=== PATIENT | female | born 1960 | race Caucasian/White ===

== ENCOUNTER 2019-05-24 13:05 | Inpatient (IN) | payer OTHER, SELFPAY ==
[2019-05-24] VITALS (9 sets, daily range): BP systolic 93–111; BP diastolic 61–79; PULSE 88–100; RESP 14–23; TEMP 36.6–36.9; O2SAT 81–97; BMI 21.9
--- NOTE | 2019-05-24 13:25 | ED_ITS ---
HPI - SOB/Dyspnea General Chief Complaint: Shortness of Breath/Dyspnea Stated Complaint: shortness of breath Time Seen by Provider: 05/24/19 13:20 Source: patient and family () Mode of arrival: wheelchair Limitations: no limitations History of Present Illness This is a 58-year-old female who comes in with complaint of increasing shortness of breath. Patient has known breast cancer with metastases to the liver and spine. Patient was diagnosed with breast cancer, she had mastectomy, was on tamoxifen for 5 years and then 3 years later found metastatic cancer. Patient states that she was diagnosed by CT scan about 10 days ago with multiple pulmonary emboli. She was started on subcutaneous blood thinners. She states she has been taking them regularly although sometimes it is a couple hours off of schedule. Patient has not had any fevers or chills. She has had increasing shortness of breath. She states that she has had increasing difficulty breathing with exertion and she is finding it harder and harder for her to walk any distance. Today even talking, lifting her arm or brushing her teeth when see her. Patient has not been coughing anything up. She is not complaining of any chest pain. She does have back pain. She recently had palliative radiation for 5 days for lesions in her spine which she states was not very helpful. She has not had any changes to bowel movements or urination. She has noticed swel ling in her left lower extremity. She is from the [place] area and they did drive here to spend the rest of the month. Patient states that she does not have any other medical problems such as hypertension, diabetes dyslipidemia thyroid. She did have a period where she had a lot of ascites and had peritoneal drains but the fluid has been drained off and she no longer has those in place. She states that she has had a mastectomy, she has had uterine ablation, bilateral oophorectomy as well as tubal. She denies any allergies to medications. She denies any tobacco, alcohol or illicit. She is and accompanied by her Related Data Home Medications Medication Instructions Recorded Confirmed cyclobenzaprine 5 mg PO TID PRN 05/24/19 05/24/19 enoxaparin 1 dose SUBCUT DAILY 05/24/19 05/24/19 furosemide 60 mg PO DAILY 05/24/19 05/24/19 hydromorphone [Dilaudid] 6 mg PO Q3H PRN 05/24/19 05/24/19 lidocaine 1 patch TOPICAL DAILY PRN 05/24/19 05/24/19 methadone 15 mg PO BID 05/24/19 05/24/19 morphine 120 mg PO Q12H 05/24/19 05/24/19 naloxone [Narcan] 1 dose INTRANASAL PRN PRN 05/24/19 05/24/19 ondansetron 4 mg PO PRN PRN 05/24/19 05/24/19 potassium chloride [Klor-Con M20] 20 meq PO DAILY 05/24/19 05/24/19 salsalate 1,000 mg PO BID 05/24/19 05/24/19 sennosides [senna] 1 dose PO PRN PRN 05/24/19 05/24/19 spironolactone 25 mg PO DAILY 05/24/19 05/24/19 Allergies Allergy/AdvReac Type Severity Reaction Status Date / Time Penicillins Allergy Mild Rash Verified 05/24/19 14:11 Review of Systems Review of Systems ROS Unobtainable: All systems reviewed & are unremarkable except as noted in HPI and below Constitutional Denies chills, Reports fatigue, Denies fever(s), Denies lethargy and Denies weakness Cardiovascular Denies chest pain, Denies diaphoresis, Denies syncope, Denies irregular heart rhythm, Reports leg edema (Left leg), Denies lightheadedness, Denies palpitations, Reports dyspnea, Reports dyspnea on exertion and Denies orthopnea Respiratory Denies change in phlegm color, Denies chest congestion, Denies cough, Denies hemoptysis, Reports dyspnea, Reports dyspnea on exertion and Denies wheezing Gastrointestinal Gastrointestinal: Denies abdominal pain, Denies melena, Denies hematochezia, Denies change in bowel habits, Denies diarrhea, Denies nausea and Denies vomiting Genitourinary Denies hematuria, Denies dysuria, Denies flank pain and Denies urinary urgency Musculoskeletal Reports back pain Integumentary/Breasts Denies rash Neurologic Denies syncope and Denies weakness Endocrine Reports fatigue and Denies palpitations Allergic/Immunologic Denies wheezing [facility] Medical History (Updated 05/24/19 @ 18:13 by Antonio Horton MD) Metastatic breast cancer (Acute) Portal vein thrombosis (Acute) Metastasis to spinal column (Chronic) Pulmonary embolism (Ruled-out) Surgical History H/O mastectomy (Chronic) H/O oophorectomy (Chronic) H/O tubal ligation (Chronic) Family History (Updated 05/24/19 @ 18:02 by Antonio Horton MD) Mother Ovary cancer Father Suicide Social History (Updated 05/24/19 @ 14:09 by Barbara Arellano DO) marital status: household members: significant other and children other: Lives in [facility] Smoking Status: Never smoker alcohol intake: former substance use type: does not use Social History (Updated 05/24/19 @ 14:09 by Barbara Arellano DO) marital status: household members: significant other and children other: Lives in [facility] Smoking Status: Never smoker alcohol intake: former substance use type: does not use Exam Narrative Exam Narrative: GEN: Thin kyphotic female, alert and oriented x 3, patient appe ars to be in mild distress. HEENT: Atraumatic, pupils are equal round reactive to light, extraocular movements are intact, nares are clear. HEART: Regular rate and rhythm without murmur, clicks, rubs. Pulses are equal in upper and lower extremities LUNGS:Lungs decreased bilaterally, no wheezes, rales, crackles, chest moves symmetrically, no tachypnea, no accessory muscle use. ABD:bowel sounds normal, soft, non-tender, no guarding, rebound, rigidity, no masses noted, no hepatosplenomegaly :No CVA tenderness MSCL: Non-tender, full range of motion of upper extremities, gait not tested. NEURO:CN 2-12 intact, sensation normal. Initial Vital Signs Initial Vital Signs: Vital Signs Temperature 98.4 F 05/24/19 13:05 Pulse Rate 93 H 05/24/19 13:05 Respiratory Rate 18 05/24/19 13:05 Blood Pressure 105/68 05/24/19 13:05 Pulse Oximetry 81 L 05/24/19 13:05 Course Orders Ordered: ED Orders 05/24/19 13:26 B Type Natriuretic Peptide Stat Complete Blood Count AUTO DIFF Stat Partial Thromboplastin Time Stat Prothrombin Time INR Stat 05/24/19 13:53 Consult to Respiratory Therapy Evaluate & Treat EKG-12 Lead Stat 05/24/19 13:54 CT angio chest PE protocol Stat XR chest 1V Stat 05/24/19 14:14 Blood Culture Stat Comprehensive Metabolic Panel Stat Lactate (Lactic Acid) Stat Magnesium Stat Procalcitonin Stat Troponin & CK Cardiac Panel Stat 05/24/19 15:00 Urinalysis and Microscopic Stat Urine Culture Stat 05/24/19 17:10 Consult to Dietitian, Adult Routine 05/24/19 17:52 Education, smoking cessation ONGOING 05/24/19 17:55 Consult to Physical Therapy Evaluate & Treat 05/24/19 18:21 Potassium Stat Cyclobenzaprine HCl (Flexeril) 5 mg PO TID PRN PRN Reason: Muscle Spasm Dexamethasone (Decadron) 4 mg IV Q12HR RICHARD Enoxaparin Sodium (Lovenox) 80 mg SUBCUT DAILY RICHARD Furosemide (Lasix) 60 mg PO DAILY RICHARD Hydromorphone HCl (Dilaudid) 6 mg PO Q3H PRN PRN Reason: pain Sodium Chloride (Normal Saline 0.9%) 1,000 mls @ 150 mls/hr IV CONT [facility] Last Infusion: 05/24/19 16:46 Dose: 0 mls/hr Admin: 05/24/19 14:15 Dose: 150 mls/hr Lidocaine (Lidoderm) 1 each TOP DAILY PRN PRN Reason: pain Lidocaine (Lidoderm (Remove Patch)) 1 each TOP BEDTIME [facility] Methadone HCl (Methadone) 15 mg PO BID [facility] Morphine Sulfate (Ms Contin) 120 mg PO Q12H [facility] Last Admin: 05/24/19 18:51 Dose: 120 mg Ondansetron HCl (Zofran Odt) 4 mg PO Q4H PRN PRN Reason: Nausea Potassium Chloride (Klor-Con M20) 20 meq PO DAILY [facility] Salsalate (Salsalate) 1,000 mg PO BID [facility] Sennosides (Senna) 8.6 mg PO BEDTIME [facility] Spironolactone (Aldactone) 25 mg PO DAILY [facility] Discontinued Medications Potassium Chloride (Potassium Chloride) 40 meq PO NOW ONE Stop: 05/24/19 14:56 Last Admin: 05/24/19 15:13 Dose: 40 meq Vital Signs - 8 hr 05/24/19 13:05 05/24/19 13:39 05/24/19 14:00 Temperature 98.4 F Pulse Rate 95 H 91 H 93 H Respiratory Rate 22 22 21 Blood Pressure 105/68 Blood Pressure [Left Arm] Blood Pressure [Right Arm] 105/68 103/63 95/62 Pulse Oximetry 95 96 97 05/24/19 14:30 05/24/19 15:15 05/24/19 16:01 Temperature Pulse Rate 90 100 H 97 H Respiratory Rate 21 23 Blood Pressure Blood Pressure [Left Arm] 107/64 Blood Pressure [Right Arm] 95/63 93/61 Pulse Oximetry 96 95 92 05/24/19 16:57 Temperature 98.1 F Pulse Rate 91 H Respiratory Rate 14 Blood Pressure 96/67 Blood Pressure [Left Arm] Blood Pressure [Right Arm] Pulse Oximetry 96 MDM - SOB/Dyspnea Lab Data Attestation: I reviewed the patient's lab results. Result diagrams: 05/24/19 13:26 05/24/19 18:21 Lab Results 05/24/19 05/24/19 05/24/19 Range/Units 13:26 13:26 14:14 WBC 2.3 L (4.5-11.0) X10^3/uL RBC 3.54 L (4.0-5.2) X10^6/uL Hgb 12.5 (12.0-16.0) g/dL Hct 36.6 (36-46) % MCV 103.3 H (80-100) fL MCH 35.2 H (26-34) PG MCHC 34.1 (30-36) % RDW 20.6 H (11.6-14.8) % Plt Count 54 L (150-400) X10^3/uL Neut % (Auto) 80.9 H (50-75) % Lymph % (Auto) 6.0 L (25-40) % [place] % (Auto) 9.8 (3-14) % Eos % (Auto) 2.2 (2-4) % Baso % (Auto) 1.1 (0-2) % Neut # (Auto) 1900 (4641-3106) /uL Lymph # (Auto) 100 L (4574-5834) /uL [place] # (Auto) 200 (0-900) /uL Eos # (Auto) 100 (0-450) /uL Baso # (Auto) 0 (0-100) /uL Platelet Estimate Decr RBC Morphology See below Polychromasia 1+ H Poikilocytosis 1+ H Anisocytosis 1+ H Macrocytosis 1+ H PT 17.8 H (10.1-12.7) SECONDS INR 1.5 H (0.9-1.3) APTT 33 (26.4-36.2) SECONDS Sodium (137-145) mmol/L Potassium (3.4-5.1) mmol/L Chloride (98-107) mmol/L Carbon Dioxide (22-32) mmol/L BUN (7-17) mg/dL Creatinine (0.52-1.04) mg/dL Estimated GFR (>60) mL/min BUN/Creatinine Ratio (6-22) Glucose (80-110) mg/dL Lactate (0.7-2.1) mmol/L Calcium (8.4-10.2) mg/dL Magnesium 1.6 (1.6-2.3) mg/dL Total Bilirubin (0.2-1.3) mg/dL AST (14-36) IU/L ALT (9-52) IU/L Alkaline Phosphatase (38-126) U/L Total Creatine Kinase 59 (30-135) U/L CK-MB (CK-2) TNP CK-MB (CK-2) Rel Index TNP Troponin I < 0.012 (0.01-0.034) ng/mL B-Natriuretic Peptide 277 H (<100) Total Protein (6.3-8.2) g/dL Albumin (3.5-5.0) g/dL Globulin (1.7-4.1) g/dL Albumin/Globulin Ratio (1.0-2.8) Procalcitonin (<0.5) ng/mL Urine Color Urine Appearance Urine pH (4.5-8.0) Ur Specific [place] (1.000-1.035) Urine Protein (Negative) Urine Glucose (UA) (Negative) g/dL Urine Ketones (NEGATIVE) Urine Occult Blood (Negative) Urine Nitrate (Negative) Urine Bilirubin (NEGATIVE) Urine Urobilinogen (0.2) E.U./dL Ur Leukocyte Esterase (NEGATIVE) Urine RBC (0-5/HPF) Urine WBC (0-5/HPF) Ur Squamous Epith Cells (0-5/HPF) Urine Bacteria (None) Hyaline Casts (None) Urine Mucus (Negative) Ur Culture Indicated? 05/24/19 05/24/19 05/24/19 Range/Units 14:14 14:14 14:14 WBC (4.5-11.0) X10^3/uL RBC (4.0-5.2) X10^6/uL Hgb (12.0-16.0) g/dL Hct (36-46) % MCV (80-100) fL MCH (26-34) PG MCHC (30-36) % RDW (11.6-14.8) % Plt Count (150-400) X10^3/uL Neut % (Auto) (50-75) % Lymph % (Auto) (25-40) % [place] % (Auto) (3-14) % Eos % (Auto) (2-4) % Baso % (Auto) (0-2) % Neut # (Auto) (5082-6613) /uL Lymph # (Auto) (5994-0914) /uL [place] # (Auto) (0-900) /uL Eos # (Auto) (0-450) /uL Baso # (Auto) (0-100) /uL Platelet Estimate RBC Morphology Polychromasia Poikilocytosis Anisocytosis Macrocytosis PT (10.1-12.7) SECONDS INR (0.9-1.3) APTT (26.4-36.2) SECONDS Sodium 136 L (137-145) mmol/L Potassium 2.7 L* (3.4-5.1) mmol/L Chloride 93 L (98-107) mmol/L Carbon Dioxide 36 H (22-32) mmol/L BUN 13 (7-17) mg/dL Creatinine 0.60 (0.52-1.04) mg/dL Estimated GFR > 60.0 (>60) mL/min BUN/Creatinine Ratio 21.7 (6-22) Glucose 100 (80-110) mg/dL Lactate 1.5 (0.7-2.1) mmol/L Calcium 8.5 (8.4-10.2) mg/dL Magnesium (1.6-2.3) mg/dL Total Bilirubin 1.0 (0.2-1.3) mg/dL AST 77 H (14-36) IU/L ALT 26 (9-52) IU/L Alkaline Phosphatase 142 H (38-126) U/L Total Creatine Kinase (30-135) U/L CK-MB (CK-2) CK-MB (CK-2) Rel Index Troponin I (0.01-0.034) ng/mL B-Natriuretic Peptide (<100) Total Protein 6.5 (6.3-8.2) g/dL Albumin 3.2 L (3.5-5.0) g/dL Globulin 3.3 (1.7-4.1) g/dL Albumin/Globulin Ratio 1.0 (1.0-2.8) Procalcitonin < 0.05 (<0.5) ng/mL Urine Color Urine Appearance Urine pH (4.5-8.0) Ur Specific [place] (1.000-1.035) Urine Protein (Negative) Urine Glucose (UA) (Negative) g/dL Urine Ketones (NEGATIVE) Urine Occult Blood (Negative) Urine Nitrate (Negative) Urine Bilirubin (NEGATIVE) Urine Urobilinogen (0.2) E.U./dL Ur Leukocyte Esterase (NEGATIVE) Urine RBC (0-5/HPF) Urine WBC (0-5/HPF) Ur Squamous Epith Cells (0-5/HPF) Urine Bacteria (None) Hyaline Casts (None) Urine Mucus (Negative) Ur Culture Indicated? 05/24/19 05/24/19 Range/Units 15:00 18:21 WBC (4.5-11.0) X10^3/uL RBC (4.0-5.2) X10^6/uL Hgb (12.0-16.0) g/dL Hct (36-46) % MCV (80-100) fL MCH (26-34) PG MCHC (30-36) % RDW (11.6-14.8) % Plt Count (150-400) X10^3/uL Neut % (Auto) (50-75) % Lymph % (Auto) (25-40) % [place] % (Auto) (3-14) % Eos % (Auto) (2-4) % Baso % (Auto) (0-2) % Neut # (Auto) (1960-3357) /uL Lymph # (Auto) (4727-9269) /uL [place] # (Auto) (0-900) /uL Eos # (Auto) (0-450) /uL Baso # (Auto) (0-100) /uL Platelet Estimate RBC Morphology Polychromasia Poikilocytosis Anisocytosis Macrocytosis PT (10.1-12.7) SECONDS INR (0.9-1.3) APTT (26.4-36.2) SECONDS Sodium (137-145) mmol/L Potassium 3.6 (3.4-5.1) mmol/L Chloride (98-107) mmol/L Carbon Dioxide (22-32) mmol/L BUN (7-17) mg/dL Creatinine (0.52-1.04) mg/dL Estimated GFR (>60) mL/min BUN/Creatinine Ratio (6-22) Glucose (80-110) mg/dL Lactate (0.7-2.1) mmol/L Calcium (8.4-10.2) mg/dL Magnesium (1.6-2.3) mg/dL Total Bilirubin (0.2-1.3) mg/dL AST (14-36) IU/L ALT (9-52) IU/L Alkaline Phosphatase (38-126) U/L Total Creatine Kinase (30-135) U/L CK-MB (CK-2) CK-MB (CK-2) Rel Index Troponin I (0.01-0.034) ng/mL B-Natriuretic Peptide (<100) Total Protein (6.3-8.2) g/dL Albumin (3.5-5.0) g/dL Globulin (1.7-4.1) g/dL Albumin/Globulin Ratio (1.0-2.8) Procalcitonin (<0.5) ng/mL Urine Color Yellow Urine Appearance Clear Urine pH 5.0 (4.5-8.0) Ur Specific [place] 1.025 (1.000-1.035) Urine Protein Negative (Negative) Urine Glucose (UA) Negative (Negative) g/dL Urine Ketones Trace H (NEGATIVE) Urine Occult Blood Negative (Negative) Urine Nitrate Negative (Negative) Urine Bilirubin Negative (NEGATIVE) Urine Urobilinogen 0.2 (0.2) E.U./dL Ur Leukocyte Esterase 1+ H (NEGATIVE) Urine RBC None seen (0-5/HPF) Urine WBC 10-30/hpf H (0-5/HPF) Ur Squamous Epith Cells 1-5 /hpf (0-5/HPF) Urine Bacteria Moderate (10-30) H (None) Hyaline Casts 10-30/lpf (None) Urine Mucus 2+ H (Negative) Ur Culture Indicated? Specimen cultured Imaging Data Chest x-ray: Radiologist's impression: [place] [address] XRay Report Signed Patient: Mary Dietrich EMR#: [id number] : 8Acct:[id number] Age/Sex: 58 / FDate of Service: 05/24/19 Loc: ED Accession Number: [id number] Procedure: XR chest 1V Ordering Provider: Barbara Arellano D.O. PROCEDURE: XR CHEST 1V INDICATIONS: sob, cancer. known pe TECHNIQUE: One view of the chest was acquired. COMPARISON: None. FINDINGS: Decreased visualization of the right lung apex due to the patient's kyphosis and position. Surgical changes and devices: None. Lungs and pleura: right lung base opacity and probable small right pleural effusion.. Mediastinum: Tortuous thoracic aorta. Heart size is grossly within normal limits. Bones and chest wall: Numerous deformity is prior right rib fractures, left rib fractures, and heterogeneity in the demineralization suggesting metastases. Overlying soft tissues appear unremarkable. IMPRESSION: Probable small right pleural effusion with right base atelectasis or pneumonia. Evaluation of the right thorax is limited due to the patient's pos itioning. Multiple bone lesions and healing bilateral rib fractures. Dictated by: Kerry Hale M.D. on 05/24/2019 at 13:23 Approved by: Kerry Hale M.D. on 05/24/2019 at 13:26 CTA PE protocal: Radiologist's impression: [address] [address] [address] Scan Report Signed Patient: Mary Dietrich EMR#: [id number] : 8Acct:[id number] Age/Sex: 58 / FDate of Service: 05/24/19 Loc: ED Accession Number: [id number] Procedure: CT angio chest PE protocol Ordering Provider: Barbara Arellano D.O. PROCEDURE: CT ANGIO CHEST PE PROTOCOL INDICATIONS: known pe, worsening sob, has breast ca w/ mets TECHNIQUE: After the administration of intravenous contrast, 2 mm thick sections acquired from the pulmonary apices to the posterior costophrenic angles. 3-dimensional maximum intensity projection (MIP) coronal and sagittal reformats were then acquired through the thorax. For radiation dose reduction, the following was used: automated exposure cont rol, adjustment of mA and/or kV according to patient size. COMPARISON: None. FINDINGS: Image quality: Excellent. Pulmonary arteries: Pulmonary arteries are normal in size, and demonstrate no intraluminal filling defects to suggest central pulmonary embolism. Lungs and pleura: Moderate to large right pleural effusion is seen with near complete atelectasis of right middle and lower lobes and segmental atelectasis in posterior aspect of right upper lobe. Small infiltrate/atelectasis in posterior and medial aspect of left lower lobe is seen. There is mild centrilobular emphysema. No pneumothorax. Central and peripheral airways are patent. Mediastinum: Heart size is enlarged, without pericardial effusion. No mediastinal or hilar adenopathy by size criteria. Thoracic aorta is normal in caliber and enhancement. Esophagus is normal in caliber, with a small hiatal hernia. Bones and chest wall: Severe kyphosis of thoracic spine centered at T5-6 level is seen. Heterogeneously sclerotic appearance of visualized thoracic spine, sternum, and bilateral ribs are seen, consistent with patient's known metastatic breast cancer. There is cortical irregularity involving the mid sternum concerning for pathologic midsternal fracture. Thyroid gland is within normal limits. No axillary or supraclavicular adenopathy. Abdomen: Ascites fluid in the visualized right upper quadrant abdomen is seen. Lobulated liver contour is noted concerning for cirrhosis. There is splenomegaly. IMPRESSION: 1. No evidence of pulmonary emboli is seen on the current study. 2. Moderate to large right pleural effusion with atelectasis of right middle and lower lobes and segmental atelectasis in right upper lobe. Small infiltrate/atelectasis in left lower lobe. No pneumothorax. 3. No gross mediastinal or hilar lymphadenopathy. Marked cardiomegaly, no pericardial effusion. 4. Severe kyphosis of thoracic spine. Extensive sclerotic lesions scattered throughout visualized bony thorax, concerning for metastatic disease given patient's history of rest cancer. Cortical disruption involving mid to distal sternum concerning for pathologic sternal fracture. 5. Small amount of ascites fluid in right upper quadrant abdomen. Lobulated liver contour concerning for cirrhosis. Mild splenomegaly. Dictated by: Refugio Elizabeth M.D. on 05/24/2019 at 15:13 Approved by: Refugio Elizabeth M.D. on 05/24/2019 at 15:23 ECG Data Attestation: I personally reviewed and interpreted this ECG as follows: Prior ECG tracings: not available for review Interpretation: Sinus rhythm with ventricular PVCs. No ST elevation or depression appreciated. Patient does not have any prior EKGs available. MDM Narrative Medical decision making narrative: Patient's labs show a leukopenia with a white count of 2.3 hemoglobin is 12.5 platelets are 54, 1.5 with a PT of 17.8 and a PTT of 33. Patient's electrolytes are abnormal with a sodium 136, hypokalemic at 2.7 chloride of 93 and a bicarb of 36. BUN and creatinine are normal, lactate is normal 1.5, AST also slightly elevated at 77 with alk phos of 142, troponin is normal. BNP slightly elevated 277. And procalcitonin is negative. Chest x-ray shows possible right pleural effusion, it is difficult to evaluate based on patient's kyphosis. CT of the chest for PE protocol shows no evidence of pulmonary emboli, moderate to large right pleural effusion with atelectasis of right middle and lower lobes and segmental atelectasis in right upper lobe. Small infiltrate atelectasis some left lower lobe. No pneumo. No gross mediastinal or hilar lymphadenopathy. Marked cardiomegaly but no pericardial effusion. Patient has severe kyphosis of her thoracic spine with extensive sclerotic lesions concerning for metastatic disease is. She has cortical disruption in the mid to distal sternum concerning for pathologic sternal fracture. And small amount of ascites fluid in the right upper quadrant abdomen. Lobulated liver contour concerning for cirrhosis and mild splenomegaly. Attempting to obtain records but this is been difficult. We have contacted patient's primary care office, the building where they been seen and are trying [employer] insurance to get a CT report. Patient is comfortable on 2 L nasal cannula in the high 90s on her O2. Discussed findings with patient, with her large pleural effusion and high likelihood for recurrence discussed if she would like to try drainage as it will likely react cumulative quickly. Her platelets are 54 with an INR of 1.5, patient is the edge of cut off for thoracentesis per Radiology. The cough is 50 with an INR of 1.5. Discussed with patient that she has risk for complications such as bleeding and hemo thorax. She defers doing thoracentesis this time. She would like to try to maintain her oxygen with O2 and then return home for any further intervention. Patient we have attempted to get home O2 and have not been successful. Spoke with Dr. oHrton from the hospitalist service and he accepts. Discharge Plan Departure Patient Disposition: Admitted as Observation Clinical Impression: Hypoxemia, Hypokalemia, Large pleural effusion Discharge Date/Time: 05/24/19 16:48 Interventions: ED Discharge Assessment Last Done: 05/24/19 16:47 Admit Date/Time: 05/24/19 15:57 Admit Provider: Antonio Horton
--- NOTE | 2019-05-24 13:46 | PC.NURSE ---
pt reports decrease ability to ambulate more than 5-7 minutes without stopping, sees spots, is having trouble sleeping secondary to pain, has increased burping/feelings of satiety
--- NOTE | 2019-05-24 13:54 | DI.CT.S_ITS ---
PROCEDURE: CT ANGIO CHEST PE PROTOCOL INDICATIONS: known pe, worsening sob, has breast ca w/ mets TECHNIQUE: After the administration of intravenous contrast, 2 mm thick sections acquired from the pulmonary apices to the posterior costophrenic angles. 3-dimensional maximum intensity projection (MIP) coronal and sagittal reformats were then acquired through the thorax. For radiation dose reduction, the following was used: automated exposure control, adjustment of mA and/or kV according to patient size. COMPARISON: None. FINDINGS: Image quality: Excellent. Pulmonary arteries: Pulmonary arteries are normal in size, and demonstrate no intraluminal filling defects to suggest central pulmonary embolism. Lungs and pleura: Moderate to large right pleural effusion is seen with near complete atelectasis of right middle and lower lobes and segmental atelectasis in posterior aspect of right upper lobe. Small infiltrate/atelectasis in posterior and medial aspect of left lower lobe is seen. There is mild centrilobular emphysema. No pneumothorax. Central and peripheral airways are patent. Mediastinum: Heart size is enlarged, without pericardial effusion. No mediastinal or hilar adenopathy by size criteria. Thoracic aorta is normal in caliber and enhancement. Esophagus is normal in caliber, with a small hiatal hernia. Bones and chest wall: Severe kyphosis of thoracic spine centered at T5-6 level is seen. Heterogeneously sclerotic appearance of visualized thoracic spine, sternum, and bilateral ribs are seen, consistent with patient's known metastatic breast cancer. There is cortical irregularity involving the mid sternum concerning for pathologic midsternal fracture. Thyroid gland is within normal limits. No axillary or supraclavicular adenopathy. Abdomen: Ascites fluid in the visualized right upper quadrant abdomen is seen. Lobulated liver contour is noted concerning for cirrhosis. There is splenomegaly. IMPRESSION: 1. No evidence of pulmonary emboli is seen on the current study. 2. Moderate to large right pleural effusion with atelectasis of right middle and lower lobes and segmental atelectasis in right upper lobe. Small infiltrate/atelectasis in left lower lobe. No pneumothorax. 3. No gross mediastinal or hilar lymphadenopathy. Marked cardiomegaly, no pericardial effusion. 4. Severe kyphosis of thoracic spine. Extensive sclerotic lesions scattered throughout visualized bony thorax, concerning for metastatic disease given patient's history of rest cancer. Cortical disruption involving mid to distal sternum concerning for pathologic sternal fracture. 5. Small amount of ascites fluid in right upper quadrant abdomen. Lobulated liver contour concerning for cirrhosis. Mild splenomegaly. Dictated by: Refugio Elizabeth M.D. on 05/24/2019 at 15:13 Approved by: Refugio Elizabeth M.D. on 05/24/2019 at 15:23
--- NOTE | 2019-05-24 13:54 | DI.RAD.S_ITS ---
PROCEDURE: XR CHEST 1V INDICATIONS: sob, cancer. known pe TECHNIQUE: One view of the chest was acquired. COMPARISON: None. FINDINGS: Decreased visualization of the right lung apex due to the patient's kyphosis and position. Surgical changes and devices: None. Lungs and pleura: right lung base opacity and probable small right pleural effusion.. Mediastinum: Tortuous thoracic aorta. Heart size is grossly within normal limits. Bones and chest wall: Numerous deformity is prior right rib fractures, left rib fractures, and heterogeneity in the demineralization suggesting metastases. Overlying soft tissues appear unremarkable. IMPRESSION: Probable small right pleural effusion with right base atelectasis or pneumonia. Evaluation of the right thorax is limited due to the patient's positioning. Multiple bone lesions and healing bilateral rib fractures. Dictated by: Kerry Hale M.D. on 05/24/2019 at 13:23 Approved by: Kerry Hale M.D. on 05/24/2019 at 13:26
[2019-05-24 14:04] LABS: Add Manual Diff / Slide Review NO; Basophils Absolute Auto 0 /uL (0-100); Basophils Percent Auto 1.1 % (0-2); Eosinophils Absolute Auto 100 /uL (0-450); Eosinophils Percent Auto 2.2 % (2-4); Hematocrit 36.6 % (36-46); Hemoglobin 12.5 g/dL (12.0-16.0); Lymphocytes Absolute Auto 100 /uL (1100-4500); Mean Corpuscular HGB Conc 34.1 % (30-36); Mean Corpuscular Hemoglobin 35.2 PG (26-34); Mean Corpuscular Volume 103.3 fL (80-100); Monocytes Absolute Auto 200 /uL (0-900); Monocytes Percent Auto 9.8 % (3-14); Neutrophils Absolute Auto 1900 /uL (1500-7000); Neutrophils Percent Auto 80.9 % (50-75); Platelet Count 54 X10^3/uL (150-400); Red Blood Cell Count 3.54 X10^6/uL (4.0-5.2); Red Cell Distribution Width 20.6 % (11.6-14.8); White Blood Cell Count 2.3 X10^3/uL (4.5-11.0)
[2019-05-24 14:07] LABS: INR 1.5 (0.9-1.3); Prothrombin Time 17.8 SECONDS (10.1-12.7)
[2019-05-24 14:10] LABS: PTT Partial Thromboplastin Tim 33 SECONDS (26.4-36.2)
[2019-05-24] MEDS: SODIUM CHLORIDE 0.9% 1,000 ML 150 ML IV (14:15)
[2019-05-24 14:25] LABS: B Type Natriuretic Peptide 277 (<100)
[2019-05-24 14:34] LABS: Creatine Kinase 59 U/L (30-135); Magnesium 1.6 mg/dL (1.6-2.3)
[2019-05-24 14:35] LABS: Alanine Aminotransferase 26 IU/L (9-52); Albumin 3.2 g/dL (3.5-5.0); Alkaline Phosphatase 142 U/L (38-126); Aspartate Aminotransferase 77 IU/L (14-36); BUN Creatinine Ratio 21.7 (6-22); Blood Urea Nitrogen 13 mg/dL (7-17); Calcium 8.5 mg/dL (8.4-10.2); Carbon Dioxide 36 mmol/L (22-32); Chloride 93 mmol/L (98-107); Estimated Glomerular Filt Rate > 60.0 mL/min (>60); Globulin 3.3 g/dL (1.7-4.1); Glucose 100 mg/dL (80-110); HEMOLYSIS 15 (0-50); Sodium 136 mmol/L (137-145); Total Protein 6.5 g/dL (6.3-8.2)
[2019-05-24 14:36] LABS: Lactate (Lactic Acid) 1.5 mmol/L (0.7-2.1)
[2019-05-24 14:47] LABS: Troponin I < 0.012 ng/mL (0.01-0.034)
[2019-05-24 14:47] LABS: Anisocytosis 1+; Macrocytosis 1+; Platelet Estimate Decr; Poikilocytosis 1+; Polychromasia 1+
[2019-05-24 14:54] LABS: Potassium 2.7 mmol/L (3.4-5.1)
--- NOTE | 2019-05-24 14:58 | PC.NURSE ---
pt to bathroom in wheelchair accompanied by
--- NOTE | 2019-05-24 15:04 | PC.NURSE ---
pt to xray in wheelchair accompanied by rad. tech
[2019-05-24 15:05] LABS: RBC Urine None Seen (0-5/HPF)
[2019-05-24 15:07] LABS: Appearance Urine UA CLEAR; Bilirubin Urine UA NEGATIVE (NEGATIVE); Color Urine UA YELLOW; Glucose Urine UA NEGATIVE (Negative); Ketones Urine UA TRACE (NEGATIVE); Leukocyte Esterase Urine UA 1+ (NEGATIVE); Nitrite Urine UA NEGATIVE (Negative); Occult Blood Urine UA NEGATIVE (Negative); Protein Urine UA NEGATIVE (Negative); Specific Gravity Urine UA 1.025 (1.000-1.035); Urobilinogen Urine UA 0.2 E.U./dL (0.2)
[2019-05-24 15:07] LABS: Procalcitonin < 0.05 ng/mL (<0.5)
[2019-05-24] MEDS: POTASSIUM CHLORIDE 20 MEQ/15 ML UDC 40 MEQ PO (15:13)
[2019-05-24 15:35] LABS: Squamous Epithelial Cell Urine 1-5 /HPF (0-5/HPF); WBC Urine 10-30/HPF (0-5/HPF)
[2019-05-24 15:36] LABS: Bacteria Urine Moderate (10-30); Culture Indicated Urine Specimen Cultured; Hyaline Casts Urine 10-30/LPF; Mucus Urine 2+ (Negative)
--- NOTE | 2019-05-24 17:59 | PM.HP.1 ---
History of Present Illness Date Patient Seen: 05/24/19 Time Patient Seen: 17:59 Chief complaint: shortness of breath Patient History Medical History (Updated 05/24/19 @ 15:46 by Barbara Arellano DO) Metastatic breast cancer (Acute) Metastasis to spinal column (Chronic) Pulmonary embolism (Chronic) Surgical History (Updated 05/24/19 @ 14:09 by Barbara Arellano DO) H/O mastectomy (Chronic) H/O oophorectomy (Chronic) H/O tubal ligation (Chronic) Social History (Updated 05/24/19 @ 14:09 by Barbara Arellano DO) marital status: household members: significant other and children other: Lives in [facility] Smoking Status: Never smoker alcohol intake: former substance use type: does not use Family & Social History Social History: household members significant other,children Prior Living Arrangements House other Lives in [facility] Safety & Behavioral: Feels Safe in Current Yes Environment Been Physically Hurt or No Threatened By a Person Suicidal Ideation Description None Suicide Plan Description No Plan Tobacco & Substance use: Smoking Status Never smoker alcohol intake former alcohol intake frequency 0-2 drinks per day Substance Use Type does not use Meds Home Medications Medication Instructions Recorded Confirmed Type cyclobenzaprine 5 mg PO TID PRN 05/24/19 05/24/19 History enoxaparin 1 dose SUBCUT DAILY 05/24/19 05/24/19 History furosemide 60 mg PO DAILY 05/24/19 05/24/19 History hydromorphone [Dilaudid] 6 mg PO Q3H PRN 05/24/19 05/24/19 History lidocaine 1 patch TOPICAL DAILY PRN 05/24/19 05/24/19 History methadone 15 mg PO BID 05/24/19 05/24/19 History morphine 120 mg PO Q12H 05/24/19 05/24/19 History naloxone [Narcan] 1 dose INTRANASAL PRN PRN 05/24/19 05/24/19 History ondansetron 4 mg PO PRN PRN 05/24/19 05/24/19 History potassium chloride [Klor-Con M20] 20 meq PO DAILY 05/24/19 05/24/19 History salsalate 1,000 mg PO BID 05/24/19 05/24/19 History sennosides [senna] 1 dose PO PRN PRN 05/24/19 05/24/19 History spironolactone 25 mg PO DAILY 05/24/19 05/24/19 History Allergies Allergy/AdvReac Type Severity Reaction Status Date / Time Penicillins Allergy Mild Rash Verified 05/24/19 14:11 Exam Vital Signs (past 8 hours): - 05/24/19 13:05 05/24/19 13:39 05/24/19 14:00 Temperature 98.4 F Pulse Rate 95 H 91 H 93 H Respiratory Rate 22 22 21 Blood Pressure 105/68 Blood Pressure [Left Arm] Blood Pressure [Right Arm] 105/68 103/63 95/62 Pulse Oximetry 95 96 97 05/24/19 14:30 05/24/19 15:15 05/24/19 16:01 Temperature Pulse Rate 90 100 H 97 H Respiratory Rate 21 23 Blood Pressure Blood Pressure [Left Arm] 107/64 Blood Pressure [Right Arm] 95/63 93/61 Pulse Oximetry 96 95 92 05/24/19 16:57 Temperature 98.1 F Pulse Rate 91 H Respiratory Rate 14 Blood Pressure 96/67 Blood Pressure [Left Arm] Blood Pressure [Right Arm] Pulse Oximetry 96 Oxygen Delivery Method Nasal Cannula Oxygen Flow Rate 2 Objective Labs Result Diagrams: 05/24/19 13:26 05/24/19 14:14 Labs: Laboratory Results - last 24 hr 05/24/19 05/24/19 05/24/19 13:26 13:26 14:14 WBC 2.3 L RBC 3.54 L Hgb 12.5 Hct 36.6 MCV 103.3 H MCH 35.2 H MCHC 34.1 RDW 20.6 H Plt Count 54 L Neut % (Auto) 80.9 H Lymph % (Auto) 6.0 L [place] % (Auto) 9.8 Eos % (Auto) 2.2 Baso % (Auto) 1.1 Neut # (Auto) 1900 Lymph # (Auto) 100 L [place] # (Auto) 200 Eos # (Auto) 100 Baso # (Auto) 0 Platelet Estimate Decr RBC Morphology See below Polychromasia 1+ H Poikilocytosis 1+ H Anisocytosis 1+ H Macrocytosis 1+ H PT 17.8 H INR 1.5 H APTT 33 Sodium Potassium Chloride Carbon Dioxide BUN Creatinine Estimated GFR BUN/Creatinine Ratio Glucose Lactate Calcium Magnesium 1.6 Total Bilirubin AST ALT Alkaline Phosphatase Total Creatine Kinase 59 CK-MB (CK-2) TNP CK-MB (CK-2) Rel Index TNP Troponin I < 0.012 B-Natriuretic Peptide 277 H Total Protein Albumin Globulin Albumin/Globulin Ratio Procalcitonin Urine Color Urine Appearance Urine pH Ur Specific [place] Urine Protein Urine Glucose (UA) Urine Ketones Urine Occult Blood Urine Nitrate Urine Bilirubin Urine Urobilinogen Ur Leukocyte Esterase Urine RBC Urine WBC Ur Squamous Epith Cells Urine Bacteria Hyaline Casts Urine Mucus Ur Culture Indicated? 05/24/19 05/24/19 05/24/19 14:14 14:14 14:14 WBC RBC Hgb Hct MCV MCH MCHC RDW Plt Count Neut % (Auto) Lymph % (Auto) [place] % (Auto) Eos % (Auto) Baso % (Auto) Neut # (Auto) Lymph # (Auto) [place] # (Auto) Eos # (Auto) Baso # (Auto) Platelet Estimate RBC Morphology Polychromasia Poikilocytosis Anisocytosis Macrocytosis PT INR APTT Sodium 136 L Potassium 2.7 L* Chloride 93 L Carbon Dioxide 36 H BUN 13 Creatinine 0.60 Estimated GFR > 60.0 BUN/Creatinine Ratio 21.7 Glucose 100 Lactate 1.5 Calcium 8.5 Magnesium Total Bilirubin 1.0 AST 77 H ALT 26 Alkaline Phosphatase 142 H Total Creatine Kinase CK-MB (CK-2) CK-MB (CK-2) Rel Index Troponin I B-Natriuretic Peptide Total Protein 6.5 Albumin 3.2 L Globulin 3.3 Albumin/Globulin Ratio 1.0 Procalcitonin < 0.05 Urine Color Urine Appearance Urine pH Ur Specific [place] Urine Protein Urine Glucose (UA) Urine Ketones Urine Occult Blood Urine Nitrate Urine Bilirubin Urine Urobilinogen Ur Leukocyte Esterase Urine RBC Urine WBC Ur Squamous Epith Cells Urine Bacteria Hyaline Casts Urine Mucus Ur Culture Indicated? 05/24/19 15:00 WBC RBC Hgb Hct MCV MCH MCHC RDW Plt Count Neut % (Auto) Lymph % (Auto) [place] % (Auto) Eos % (Auto) Baso % (Auto) Neut # (Auto) Lymph # (Auto) [place] # (Auto) Eos # (Auto) Baso # (Auto) Platelet Estimate RBC Morphology Polychromasia Poikilocytosis Anisocytosis Macrocytosis PT INR APTT Sodium Potassium Chloride Carbon Dioxide BUN Creatinine Estimated GFR BUN/Creatinine Ratio Glucose Lactate Calcium Magnesium Total Bilirubin AST ALT Alkaline Phosphatase Total Creatine Kinase CK-MB (CK-2) CK-MB (CK-2) Rel Index Troponin I B-Natriuretic Peptide Total Protein Albumin Globulin Albumin/Globulin Ratio Procalcitonin Urine Color Yellow Urine Appearance Clear Urine pH 5.0 Ur Specific [place] 1.025 Urine Protein Negative Urine Glucose (UA) Negative Urine Ketones Trace H Urine Occult Blood Negative Urine Nitrate Negative Urine Bilirubin Negative Urine Urobilinogen 0.2 Ur Leukocyte Esterase 1+ H Urine RBC None seen Urine WBC 10-30/hpf H Ur Squamous Epith Cells 1-5 /hpf Urine Bacteria Moderate (10-30) H Hyaline Casts 10-30/lpf Urine Mucus 2+ H Ur Culture Indicated? Specimen cultured Quality VTE Deep Vein Thrombosis/Pulmonary Embolism Present on Admission: Yes
--- NOTE | 2019-05-24 17:59 | PM.HP.1 ---
History of Present Illness Date Patient Seen: 05/24/19 Time Patient Seen: 18:15 Chief complaint: shortness of breath Narrative: This is a 62-year-old female, on vacation to her 2nd home here in [facility] who has advanced metastatic breast cancer. She just drove up from her home in [place], hoping to spend a month relaxing here but became short of breath and severely dyspneic with any exertion within the last 2 days. About 10 days ago her oncologist had diagnosed a portal vein thrombosis on CT scan and started her on warfarin. Her INR is 1.5. The chest x-ray today shows bilateral pulmonary markings, likely scarring versus mets along with a pleural effusion on the right. Due to her severe kyphosis it is difficult to localize clearly for a possible thoracentesis in a safe manner. She was 81% on room air when she arrived and is now sat-ting in the low 90s on 1-2 L of nasal cannula. She says she feels ?so much better.? She had indicated that she was thinking of doing palliative radiation to her back metastasis. She also indicates that the oncologist suggested there might be 2 more oral/chemo treatments to try. She has not had any pulmonary problems before this point. She apparently did not have a pleural effusion on her CT scan from 10 days ago. Her cancer was diagnosed in 2001, treated with tamoxifen for 5 years and a bilateral mastectomy, then spreading to her liver, then treated with chemotherapy, unknown name, until recently when it appeared not to show any response on her last CT scan. Dr. Elizabeth in [facility] is her current oncologist. She does not appear to have been referred to hospice yet. She will need home oxygen, specifically a mobile compressor to use on her planned drive back to [place] when she leaves here. That was not able to be arranged in the emergency department. She has specific insurance/home oxygen company requirements that will take some time to finalize, hopefully by tomorrow. She has not been on steroids for her cancer before. There has been no fever/coughing/chest pain. Her potassium level is low at 2.7. She is on Lasix 20 mg a day. Her white blood count is low at 2.3 and her platelets are low at 54. 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) Pulmonary embolism (Ruled-out) Surgical History H/O mastectomy (Chronic) H/O oophorectomy (Chronic) H/O tubal ligation (Chronic) Family History (Updated 05/24/19 @ 18:02 by Antonio Horton MD) Mother Ovary cancer Father Suicide Social History (Updated 05/24/19 @ 14:09 by Barbara Arellano DO) marital status: household members: significant other and children other: Lives in [facility] Smoking Status: Never smoker alcohol intake: former substance use type: does not use Family & Social History Social History: household members significant other,children Prior Living Arrangements House other Lives in [facility] Safety & Behavioral: Feels Safe in Current Yes Environment Been Physically Hurt or No Threatened By a Person Suicidal Ideation Description None Suicide Plan Description No Plan Tobacco & Substance use: Smoking Status Never smoker alcohol intake former alcohol intake frequency 0-2 drinks per day Substance Use Type does not use Comment: 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 She lives in [facility], her oncologist is Dr. Elizabeth in [place], [place]. Meds Home Medications Medication Instructions Recorded Confirmed Type cyclobenzaprine 5 mg PO TID PRN 05/24/19 05/24/19 History enoxaparin 1 dose SUBCUT DAILY 05/24/19 05/24/19 History furosemide 60 mg PO DAILY 05/24/19 05/24/19 History hydromorphone [Dilaudid] 6 mg PO Q3H PRN 05/24/19 05/24/19 History lidocaine 1 patch TOPICAL DAILY PRN 05/24/19 05/24/19 History methadone 15 mg PO BID 05/24/19 05/24/19 History morphine 120 mg PO Q12H 05/24/19 05/24/19 History naloxone [Narcan] 1 dose INTRANASAL PRN PRN 05/24/19 05/24/19 History ondansetron 4 mg PO PRN PRN 05/24/19 05/24/19 History potassium chloride [Klor-Con M20] 20 meq PO DAILY 05/24/19 05/24/19 History salsalate 1,000 mg PO BID 05/24/19 05/24/19 History sennosides [senna] 1 dose PO PRN PRN 05/24/19 05/24/19 History spironolactone 25 mg PO DAILY 05/24/19 05/24/19 History Allergies Allergy/AdvReac Type Severity Reaction Status Date / Time Penicillins Allergy Mild Rash Verified 05/24/19 14:11 Review of Systems Review of Systems Positive for shortness of breath, poor energy, weakness. Negative for chest pain, nausea, vomiting, bleeding, rashes, coughing, seizures, joint swelling, new allergies, difficulty talking, dysuria. Exam Vital Signs (past 8 hours): - 05/24/19 13:05 05/24/19 13:39 05/24/19 14:00 Temperature 98.4 F Pulse Rate 95 H 91 H 93 H Respiratory Rate 22 22 21 Blood Pressure 105/68 Blood Pressure [Left Arm] Blood Pressure [Right Arm] 105/68 103/63 95/62 Pulse Oximetry 95 96 97 05/24/19 14:30 05/24/19 15:15 05/24/19 16:01 Temperature Pulse Rate 90 100 H 97 H Respiratory Rate 21 23 Blood Pressure Blood Pressure [Left Arm] 107/64 Blood Pressure [Right Arm] 95/63 93/61 Pulse Oximetry 96 95 92 05/24/19 16:57 Temperature 98.1 F Pulse Rate 91 H Respiratory Rate 14 Blood Pressure 96/67 Blood Pressure [Left Arm] Blood Pressure [Right Arm] Pulse Oximetry 96 Oxygen Delivery Method Nasal Cannula Oxygen Flow Rate 2 Narrative Exam Narrative: She is alert and oriented x3. Her Gabriel is sitting by her bedside and assisting. She appears to be in moderate distress with exertional dyspnea. She is also on high-dose opiates and apparently relatively pain-free at this time. Pupils are equally round and reactive to light and accommodation. Extraocular muscles are intact. Sclerae are pink and not icteric. Throat looks normal. No lymph nodes are felt head, neck, supraclavicular area. JVD is less than 6 cm. No carotid bruits are heard. Her neck is skull pedro luis, fixed on a band to the right. Her back is severely kyphotic, she is posturing in a hunched over position. Heart is regular rate and rhythm without murmur. Lungs are clear to auscultation bilaterally. Due to the kyphosis it is difficult to localize her pleural effusion on the right side specifically to percussion and to listening. Abdomen is protruding, nontender, mild ascites up. The shape is largely related to the kyphosis. Extremities have no ankle edema. Skin has no rash or jaundice. Neuro exam. Cranial nerves 2-12 tested intact. There is no tremor. Motor function is 4/5 throughout. Objective Labs Result Diagrams: 05/24/19 13:26 05/24/19 14:14 Labs: Laboratory Results - last 24 hr 05/24/19 05/24/19 05/24/19 13:26 13:26 14:14 WBC 2.3 L RBC 3.54 L Hgb 12.5 Hct 36.6 MCV 103.3 H MCH 35.2 H MCHC 34.1 RDW 20.6 H Plt Count 54 L Neut % (Auto) 80.9 H Lymph % (Auto) 6.0 L [place] % (Auto) 9.8 Eos % (Auto) 2.2 Baso % (Auto) 1.1 Neut # (Auto) 1900 Lymph # (Auto) 100 L [place] # (Auto) 200 Eos # (Auto) 100 Baso # (Auto) 0 Platelet Estimate Decr RBC Morphology See below Polychromasia 1+ H Poikilocytosis 1+ H Anisocytosis 1+ H Macrocytosis 1+ H PT 17.8 H INR 1.5 H APTT 33 Sodium Potassium Chloride Carbon Dioxide BUN Creatinine Estimated GFR BUN/Creatinine Ratio Glucose Lactate Calcium Magnesium 1.6 Total Bilirubin AST ALT Alkaline Phosphatase Total Creatine Kinase 59 CK-MB (CK-2) TNP CK-MB (CK-2) Rel Index TNP Troponin I < 0.012 B-Natriuretic Peptide 277 H Total Protein Albumin Globulin Albumin/Globulin Ratio Procalcitonin Urine Color Urine Appearance Urine pH Ur Specific [place] Urine Protein Urine Glucose (UA) Urine Ketones Urine Occult Blood Urine Nitrate Urine Bilirubin Urine Urobilinogen Ur Leukocyte Esterase Urine RBC Urine WBC Ur Squamous Epith Cells Urine Bacteria Hyaline Casts Urine Mucus Ur Culture Indicated? 05/24/19 05/24/19 05/24/19 14:14 14:14 14:14 WBC RBC Hgb Hct MCV MCH MCHC RDW Plt Count Neut % (Auto) Lymph % (Auto) [place] % (Auto) Eos % (Auto) Baso % (Auto) Neut # (Auto) Lymph # (Auto) [place] # (Auto) Eos # (Auto) Baso # (Auto) Platelet Estimate RBC Morphology Polychromasia Poikilocytosis Anisocytosis Macrocytosis PT INR APTT Sodium 136 L Potassium 2.7 L* Chloride 93 L Carbon Dioxide 36 H BUN 13 Creatinine 0.60 Estimated GFR > 60.0 BUN/Creatinine Ratio 21.7 Glucose 100 Lactate 1.5 Calcium 8.5 Magnesium Total Bilirubin 1.0 AST 77 H ALT 26 Alkaline Phosphatase 142 H Total Creatine Kinase CK-MB (CK-2) CK-MB (CK-2) Rel Index Troponin I B-Natriuretic Peptide Total Protein 6.5 Albumin 3.2 L Globulin 3.3 Albumin/Globulin Ratio 1.0 Procalcitonin < 0.05 Urine Color Urine Appearance Urine pH Ur Specific [place] Urine Protein Urine Glucose (UA) Urine Ketones Urine Occult Blood Urine Nitrate Urine Bilirubin Urine Urobilinogen Ur Leukocyte Esterase Urine RBC Urine WBC Ur Squamous Epith Cells Urine Bacteria Hyaline Casts Urine Mucus Ur Culture Indicated? 05/24/19 15:00 WBC RBC Hgb Hct MCV MCH MCHC RDW Plt Count Neut % (Auto) Lymph % (Auto) [place] % (Auto) Eos % (Auto) Baso % (Auto) Neut # (Auto) Lymph # (Auto) [place] # (Auto) Eos # (Auto) Baso # (Auto) Platelet Estimate RBC Morphology Polychromasia Poikilocytosis Anisocytosis Macrocytosis PT INR APTT Sodium Potassium Chloride Carbon Dioxide BUN Creatinine Estimated GFR BUN/Creatinine Ratio Glucose Lactate Calcium Magnesium Total Bilirubin AST ALT Alkaline Phosphatase Total Creatine Kinase CK-MB (CK-2) CK-MB (CK-2) Rel Index Troponin I B-Natriuretic Peptide Total Protein Albumin Globulin Albumin/Globulin Ratio Procalcitonin Urine Color Yellow Urine Appearance Clear Urine pH 5.0 Ur Specific [place] 1.025 Urine Protein Negative Urine Glucose (UA) Negative Urine Ketones Trace H Urine Occult Blood Negative Urine Nitrate Negative Urine Bilirubin Negative Urine Urobilinogen 0.2 Ur Leukocyte Esterase 1+ H Urine RBC None seen Urine WBC 10-30/hpf H Ur Squamous Epith Cells 1-5 /hpf Urine Bacteria Moderate (10-30) H Hyaline Casts 10-30/lpf Urine Mucus 2+ H Ur Culture Indicated? Specimen cultured Assessment & Plan (1) Pulmonary embolism: Problem details: diagnosed May 14, 2019 per patient, but records from [place] showed that this was actually a portal vein thrombosis and not a pulmonary embolism.. Current visit: Yes Status: Ruled-out Assessment & Plan narrative: Acute hypoxic respiratory failure -this has responded well to oxygen. -most likely cause is the pleural effusion plus pulmonary metastasis. 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 -consider thoracentesis. At this point the decision is made to instead treat with oxygen and dexamethasone, in order to lower the risk of complications before she can return home to [place]. Pulmonary scarring versus pulmonary breast cancer metastasis -begin Decadron Metastatic breast cancer with severe kyphosis and chronic bone pain -her goal is to return home to [facility], to resume her oncology treatments with further guidance from her oncologist. -I mentioned a need for hospice planning, at the very least an informational visit when she gets back to [place] would be appropriate. -she has had a long road with this cancer but it appears that she is coming in to the last few weeks of her prognostic window. High dose opiate dependent -she is on high-dose methadone, morphine apparently provided by Oncology Portal vein thrombosis -continue Coumadin -follow INR. Hypokalemia -this appears to be caused by her low-dose Lasix in conjunction with poor oral intake/malnutrition -continue to monitor and supplement appropriately. Leukopenia -UA suggests a possible UTI -Repeat CBC tomorrow Thrombocytopenia -this is undoubtedly related to her extended chemotherapy treatments, bone marrow metastasis etc. Repeat CBC tomorrow Quality VTE Deep Vein Thrombosis/Pulmonary Embolism Present on Admission: Yes
--- NOTE | 2019-05-24 18:04 | P.HP_ITS ---
History of Present Illness Date Patient Seen: 05/24/19 Time Patient Seen: 18:15 Chief complaint: shortness of breath Narrative: This is a 62-year-old female, on vacation to her 2nd home here in located within [facility] who has advanced metastatic breast cancer. She just drove up from her home in [place], hoping to spend a month relaxing here but became short of breath and severely dyspneic with any exertion within the last 2 days. About 10 days ago her oncologist had diagnosed a portal vein thrombosis on CT scan and started her on warfarin. Her INR is 1.5. The chest x-ray today shows bilateral pulmonary markings, likely scarring versus mets along with a pleural effusion on the right. Due to her severe kyphosis it is difficult to localize clearly for a possible thoracentesis in a safe manner. She was 81% on room air when she arrived and is now sat-ting in the low 90s on 1-2 L of nasal cannula. She says she feels ?so much better.? She had indicated that she was thinking of doing palliative radiation to her back metastasis. She also indicates that the oncologist suggested there might be 2 more oral/chemo treatments to try. She has not had any pulmonary problems before this point. She apparently did not have a pleural effusion on her CT scan from 10 days ago. Her cancer was di agnosed in 2001, treated with tamoxifen for 5 years and a bilateral mastectomy, then spreading to her liver, then treated with chemotherapy, unknown name, until recently when it appeared not to show any response on her last CT scan. Dr. Elizabeth in [facility] is her current oncologist. She does not appear to have been referred to hospice yet. She will need home oxygen, specifically a mobile compressor to use on her planned drive back to [place] when she leaves here. That was not able to be arranged in the emergency department. She has specific insurance/home oxygen company requirements that will take some time to finalize, hopefully by tomorrow. She has not been on steroids for her cancer before. There has been no fever/coughing/chest pain. Her potassium level is low at 2.7. She is on Lasix 20 mg a day. Her white blood count is low at 2.3 and her platelets are low at 54. 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) Pulmonary embolism (Ruled-out) Surgical History H/O mastectomy (Chronic) H/O oophorectomy (Chronic) H/O tubal ligation (Chronic) Family History (Updated 05/24/19 @ 18:02 by Antonio Horton MD) Mother Ovary cancer Father Suicide Social History (Updated 05/24/19 @ 14:09 by Barbara Arellano DO) marital status: household members: significant other and children other: Lives in [facility] Smoking Status: Never smoker alcohol intake: former substance use type: does not use Family & Social History Social History: household members significant other,children Prior Living Arrangements House other Lives in 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 She lives in [facility], her oncologist is Dr. Elizabeth in [place], [place]. Meds Home Medications Medication Instructions Recorded Confirmed Type cyclobenzaprine 5 mg PO TID PRN 05/24/19 05/24/19 History enoxaparin 1 dose SUBCUT DAILY 05/24/19 05/24/19 History furosemide 60 mg PO DAILY 05/24/19 05/24/19 History hydromorphone [Dilaudid] 6 mg PO Q3H PRN 05/24/19 05/24/19 History lidocaine 1 patch TOPICAL DAILY PRN 05/24/19 05/24/19 History methadone 15 mg PO BID 05/24/19 05/24/19 History morphine 120 mg PO Q12H 05/24/19 05/24/19 History naloxone [Narcan] 1 dose INTRANASAL PRN PRN 05/24/19 05/24/19 History ondansetron 4 mg PO PRN PRN 05/24/19 05/24/19 History potassium chloride [Klor-Con M20] 20 meq PO DAILY 05/24/19 05/24/19 History salsalate 1,000 mg PO BID 05/24/19 05/24/19 History sennosides [senna] 1 dose PO PRN PRN 05/24/19 05/24/19 History spironolactone 25 mg PO DAILY 05/24/19 05/24/19 History Allergies Allergy/AdvReac Type Severity Reaction Status Date / Time Penicillins Allergy Mild Rash Verified 05/24/19 14:11 Review of Systems Review of Systems Positive for shortness of breath, poor energy, weakness. Negative for chest pain, nausea, vomiting, bleeding, rashes, coughing, seizures, joint swelling, new allergies, difficulty talking, dysuria. Exam Vital Signs (past 8 hours): - 05/24/19 13:05 05/24/19 13:39 05/24/19 14:00 Temperature 98.4 F Pulse Rate 95 H 91 H 93 H Respiratory Rate 22 22 21 Blood Pressure 105/68 Blood Pressure [Left Arm] Blood Pressure [Right Arm] 105/68 103/63 95/62 Pulse Oximetry 95 96 97 05/24/19 14:30 05/24/19 15:15 05/24/19 16:01 Temperature Pulse Rate 90 100 H 97 H Respiratory Rate 21 23 Blood Pressure Blood Pressure [Left Arm] 107/64 Blood Pressure [Right Arm] 95/63 93/61 Pulse Oximetry 96 95 92 05/24/19 16:57 Temperature 98.1 F Pulse Rate 91 H Respiratory Rate 14 Blood Pressure 96/67 Blood Pressure [Left Arm] Blood Pressure [Right Arm] Pulse Oximetry 96 Oxygen Delivery Method Nasal Cannula Oxygen Flow Rate 2 Narrative Exam Narrative: She is alert and oriented x3. Her Gabriel is sitting by her bedside and assisting. She appears to be in moderate distress with exertional dyspnea. She is also on high-dose opiates and apparently relatively pain-free at this time. Pupils are equally round and reactive to light and accommodation. Extraocular muscles are intact. Sclerae are pink and not icteric. Throat looks normal. No lymph nodes are felt head, neck, supraclavicular area. JVD is less than 6 cm. No carotid bruits are heard. Her neck is skull pedro luis, fixed on a band to the right. Her back is severely kyphotic, she is posturing in a hunched over position. Heart is regular rate and rhythm without murmur. Lungs are clear to auscultation bilaterally. Due to the kyphosis it is difficult to localize her pleural effusion on the right side specifically to percussion and to listening. Abdomen is protruding, nontender, mild ascites up. The shape is largely related to the kyphosis. Extremities have no ankle edema. Skin has no rash or jaundice. Neuro exam. Cranial nerves 2-12 tested intact. There is no tremor. Motor function is 4/5 throughout. Objective Labs Result Diagrams: 05/24/19 13:26 05/24/19 14:14 Labs: Laboratory Results - last 24 hr 05/24/19 05/24/19 05/24/19 13:26 13:26 14:14 WBC 2.3 L RBC 3.54 L Hgb 12.5 Hct 36.6 MCV 103.3 H MCH 35.2 H MCHC 34.1 RDW 20.6 H Plt Count 54 L Neut % (Auto) 80.9 H Lymph % (Auto) 6.0 L Tyler % (Auto) 9.8 Eos % (Auto) 2.2 Baso % (Auto) 1.1 Neut # (Auto) 1900 Lymph # (Auto) 100 L Tyler # (Auto) 200 Eos # (Auto) 100 Baso # (Auto) 0 Platelet Estimate Decr RBC Morphology See below Polychromasia 1+ H Poikilocytosis 1+ H Anisocytosis 1+ H Macrocytosis 1+ H PT 17.8 H INR 1.5 H APTT 33 Sodium Potassium Chloride Carbon Dioxide BUN Creatinine Estimated GFR BUN/Creatinine Ratio Glucose Lactate Calcium Magnesium 1.6 Total Bilirubin AST ALT Alkaline Phosphatase Total Creatine Kinase 59 CK-MB (CK-2) TNP CK-MB (CK-2) Rel Index TNP Troponin I < 0.012 B-Natriuretic Peptide 277 H Total Protein Albumin Globulin Albumin/Globulin Ratio Procalcitonin Urine Color Urine Appearance Urine pH Ur Specific Goldonna Urine Protein Urine Glucose (UA) Urine Ketones Urine Occult Blood Urine Nitrate Urine Bilirubin Urine Urobilinogen Ur Leukocyte Esterase Urine RBC Urine WBC Ur Squamous Epith Cells Urine Bacteria Hyaline Casts Urine Mucus Ur Culture Indicated? 05/24/19 05/24/19 05/24/19 14:14 14:14 14:14 WBC RBC Hgb Hct MCV MCH MCHC RDW Plt Count Neut % (Auto) Lymph % (Auto) Tyler % (Auto) Eos % (Auto) Baso % (Auto) Neut # (Auto) Lymph # (Auto) Tyler # (Auto) Eos # (Auto) Baso # (Auto) Platelet Estimate RBC Morphology Polychromasia Poikilocytosis Anisocytosis Macrocytosis PT INR APTT Sodium 136 L Potassium 2.7 L* Chloride 93 L Carbon Dioxide 36 H BUN 13 Creatinine 0.60 Estimated GFR > 60.0 BUN/Creatinine Ratio 21.7 Glucose 100 Lactate 1.5 Calcium 8.5 Magnesium Total Bilirubin 1.0 AST 77 H ALT 26 Alkaline Phosphatase 142 H Total Creatine Kinase CK-MB (CK-2) CK-MB (CK-2) Rel Index Troponin I B-Natriuretic Peptide Total Protein 6.5 Albumin 3.2 L Globulin 3.3 Albumin/Globulin Ratio 1.0 Procalcitonin < 0.05 Urine Color Urine Appearance Urine pH Ur Specific Goldonna Urine Protein Urine Glucose (UA) Urine Ketones Urine Occult Blood Urine Nitrate Urine Bilirubin Urine Urobilinogen Ur Leukocyte Esterase Urine RBC Urine WBC Ur Squamous Epith Cells Urine Bacteria Hyaline Casts Urine Mucus Ur Culture Indicated? 05/24/19 15:00 WBC RBC Hgb Hct MCV MCH MCHC RDW Plt Count Neut % (Auto) Lymph % (Auto) Tyler % (Auto) Eos % (Auto) Baso % (Auto) Neut # (Auto) Lymph # (Auto) Tyler # (Auto) Eos # (Auto) Baso # (Auto) Platelet Estimate RBC Morphology Polychromasia Poikilocytosis Anisocytosis Macrocytosis PT INR APTT Sodium Potassium Chloride Carbon Dioxide BUN Creatinine Estimated GFR BUN/Creatinine Ratio Glucose Lactate Calcium Magnesium Total Bilirubin AST ALT Alkaline Phosphatase Total Creatine Kinase CK-MB (CK-2) CK-MB (CK-2) Rel Index Troponin I B-Natriuretic Peptide Total Protein Albumin Globulin Albumin/Globulin Ratio Procalcitonin Urine Color Yellow Urine Appearance Clear Urine pH 5.0 Ur Specific Goldonna 1.025 Urine Protein Negative Urine Glucose (UA) Negative Urine Ketones Trace H Urine Occult Blood Negative Urine Nitrate Negative Urine Bilirubin Negative Urine Urobilinogen 0.2 Ur Leukocyte Esterase 1+ H Urine RBC None seen Urine WBC 10-30/hpf H Ur Squamous Epith Cells 1-5 /hpf Urine Bacteria Moderate (10-30) H Hyaline Casts 10-30/lpf Urine Mucus 2+ H Ur Culture Indicated? Specimen cultured Assessment & Plan (1) Pulmonary embolism: Problem details: diagnosed May 14, 2019 per patient, but records from [place] showed that this was actually a portal vein thrombosis and not a pulmonary embolism.. Current visit: Yes Status: Ruled-out Assessment & Plan narrative: Acute hypoxic respiratory failure -this has responded well to oxygen. -most likely cause is the pleural effusion plus pulmonary metastasis. 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 -consider thoracentesis. At this point the decision is made to instead treat with oxygen and dexamethasone, in order to lower the risk of complications before she can return home to [place]. Pulmonary scarring versus pulmonary breast cancer metastasis -begin Decadron Metastatic breast cancer with severe kyphosis and chronic bone pain -her goal is to return home to [facility], to resume her oncology treatments with further guidance from her oncologist. -I mentioned a need for hospice planning, at the very least an informational visit when she gets back to [place] would be appropriate. -she has had a long road with this cancer but it appears that she is coming in to the last few weeks of her prognostic window. High dose opiate dependent -she is on high-dose methadone, morphine apparently provided by Oncology Portal vein thrombosis -continue Coumadin -follow INR. Hypokalemia -this appears to be caused by her low-dose Lasix in conjunction with poor oral intake/malnutrition -continue to monitor and supplement appropriately. Leukopenia -UA suggests a possible UTI -Repeat CBC tomorrow Thrombocytopenia -this is undoubtedly related to her extended chemotherapy treatments, bone marrow metastasis etc. Repeat CBC tomorrow Quality VTE Deep Vein Thrombosis/Pulmonary Embolism Present on Admission: Yes
[2019-05-24 18:46] LABS: HEMOLYSIS 15 (0-50); Potassium 3.6 mmol/L (3.4-5.1)
[2019-05-24] MEDS: MORPHINE ER 30 MG TABLET 120 MG PO (18:51)
[2019-05-24] MEDS: METHADONE 5 MG TABLET 15 MG PO (20:52)
[2019-05-24] MEDS: SALSALATE 500 MG TABLET 1000 MG PO (20:52)
[2019-05-24] MEDS: SENNOSIDES 8.6 MG TABLET PO (20:53)
[2019-05-24] MEDS: DEXAMETHASONE 4 MG/ML VIAL IV (23:58)
[2019-05-25] VITALS (12 sets, daily range): BP systolic 93–116; BP diastolic 44–75; PULSE 79–97; RESP 16–20; TEMP 36.4–36.8; O2SAT 84–95
[2019-05-25 06:41] LABS: Add Manual Diff / Slide Review NO; BUN Creatinine Ratio 21.7 (6-22); Basophils Absolute Auto 0 /uL (0-100); Basophils Percent Auto 0.4 % (0-2); Blood Urea Nitrogen 13 mg/dL (7-17); Calcium 8.8 mg/dL (8.4-10.2); Carbon Dioxide 36 mmol/L (22-32); Chloride 97 mmol/L (98-107); Eosinophils Absolute Auto 0 /uL (0-450); Eosinophils Percent Auto 0.6 % (2-4); Estimated Glomerular Filt Rate > 60.0 mL/min (>60); Glucose 130 mg/dL (80-110); HEMOLYSIS < 15 (0-50); Hematocrit 36.5 % (36-46); Hemoglobin 12.1 g/dL (12.0-16.0); Lymphocytes Absolute Auto 100 /uL (1100-4500); Lymphocytes Percent Auto 3.8 % (25-40); Magnesium 1.7 mg/dL (1.6-2.3); Mean Corpuscular HGB Conc 33.1 % (30-36); Mean Corpuscular Hemoglobin 35.4 PG (26-34); Mean Corpuscular Volume 106.8 fL (80-100); Monocytes Absolute Auto 100 /uL (0-900); Monocytes Percent Auto 5.2 % (3-14); Neutrophils Absolute Auto 2000 /uL (1500-7000); Red Blood Cell Count 3.42 X10^6/uL (4.0-5.2); Red Cell Distribution Width 20.9 % (11.6-14.8); Sodium 139 mmol/L (137-145); White Blood Cell Count 2.2 X10^3/uL (4.5-11.0)
[2019-05-25 06:42] LABS: Platelet Count 50 X10^3/uL (150-400)
[2019-05-25] MEDS: MORPHINE ER 30 MG TABLET 120 MG PO (06:42)
[2019-05-25 06:49] LABS: Macrocytosis 2+; Polychromasia 1+
[2019-05-25 06:50] LABS: Anisocytosis 1+
--- NOTE | 2019-05-25 07:01 | PC.NURSE ---
Pts O2 status on 2L was about 87%. I bumped her up to 3L NC and she is saturating between 88%-90%. She is a but of a mouth breather at night as well as using accessory abdominal muscles at times. Tele: NSR
[2019-05-25] MEDS: FUROSEMIDE 20 MG TABLET 60 MG PO (09:02)
[2019-05-25] MEDS: POTASSIUM CHLORIDE 20 MEQ TAB PO (09:02)
[2019-05-25] MEDS: ENOXAPARIN 80 MG/0.8 ML SYRINGE SUBCUT (09:02)
[2019-05-25] MEDS: SALSALATE 500 MG TABLET 1000 MG PO ×2 (09:03→22:11)
[2019-05-25] MEDS: SPIRONOLACTONE 25 MG TABLET PO (09:03)
[2019-05-25] MEDS: METHADONE 5 MG TABLET 15 MG PO (09:11)
--- NOTE | 2019-05-25 09:16 | P.DS_ITS ---
History of Present Illness Date Patient Seen: 05/25/19 Time Patient Seen: 09:17 Chief complaint: shortness of breath Narrative: This is a 62-year-old female, on vacation to her 2nd home here in [facility] who has advanced metastatic breast cancer. She just drove up from her home in [place], hoping to spend a month relaxing here but became short of breath and severely dyspneic with any exertion within the last 2 days. About 10 days ago her oncologist had diagnosed a portal vein thrombosis on CT scan and started her on warfarin. Her INR is 1.5. The chest x-ray today shows bilateral pulmonary markings, likely scarring versus mets along with a pleural effusion on the right. Due to her severe kyphosis it is difficult to localize clearly for a possible thoracentesis in a safe manner. She was 81% on room air when she arrived and is now sat-ting in the low 90s on 1-2 L of nasal cannula. She says she feels ?so much better.? She had indicated that she was thinking of doing palliative radiation to her back metastasis. She also indicates that the oncologist suggested there might be 2 more oral/chemo treatments to try. She has not had any pulmonary problems before this point. She apparently did not have a pleural effusion on her CT scan from 10 days ago. Her cancer was di agnosed in 2001, treated with tamoxifen for 5 years and a bilateral mastectomy, then spreading to her liver, then treated with chemotherapy, unknown name, until recently when it appeared not to show any response on her last CT scan. Dr. Elizabeth in [facility] is her current oncologist. She does not appear to have been referred to hospice yet. She will need home oxygen, specifically a mobile compressor to use on her planned drive back to [place] when she leaves here. That was not able to be arranged in the emergency department. She has specific insurance/home oxygen company requirements that will take some time to finalize, hopefully by tomorrow. She has not been on steroids for her cancer before. There has been no fever/coughing/chest pain. Her potassium level is low at 2.7. She is on Lasix 20 mg a day. Her white blood count is low at 2.3 and her platelets are low at 54. Discharge Providers Date of admission: 05/24/19 15:57 Discharge Date: 05/25/19 Consults: 05/24/19 13:53 Consult to Respiratory Therapy Evaluate & Treat Comment: Physician Instructions: Evaluate and treat 05/24/19 17:10 Consult to Dietitian, Adult Routine Comment: Reason For Exam: Stated poor appetite. Eats frequent small meals 05/24/19 17:55 Consult to Physical Therapy Evaluate & Treat Comment: Physician Instructions: Evaluate and Treat Discharge provider: Antonio Horton MD Summary Discharge Diagnosis: Acute hypoxic respiratory failure Central Lobular Emphysema Moderate right pleural effusion Pulmonary scarring versus pulmonary breast cancer metastasis Metastatic breast cancer with severe kyphosis and chronic bone pain High dose opiate dependent Portal vein thrombosis Hypokalemia Leukopenia Thrombocytopenia Hospital Course: Acute hypoxic respiratory failure with Chronic Emphysema -Her dyspnea has responded well to oxygen. At rest she is comfortable on 3 liters in the high 80's. -most likely cause is the pleural effusion/prexisting emphysema plus pulmonary metastasis. Home Oxygen/Portable Oxygen statement Mrs. Dietrich was hypoxic on room air with a saturation of 81% on arrival. She is bed-bound due to cancer with metastasis to the spine and severe degeneration of the spine. On 2 L of oxygen she regained a saturation of 94% and no longer exhibits air hunger. I am ordering home oxygen with a portable concentrator to facilitate travel back to the patient's home [facility], at which time she will continue to need oxygen at home. 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 -We considered thoracentesis. At this point with the altered anatomy of her severe kyphosis the decision is made to instead treat with oxygen and dexamethasone, in order to lower the risk of complications before she can return home to [place]. Pulmonary scarring versus pulmonary breast cancer metastasis -Seems to be tolerating Decadron Metastatic breast cancer with severe kyphosis and chronic bone pain -her goal is to return home immediately by driving to [facility], to resume her oncology treatments with further guidance from her oncologist. -I mentioned a need for hospice planning, at the very least an informational visit when she gets back to [place] would be appropriate. -she has had a long road with this cancer but it appears that she is coming in to the last few weeks of her prognostic window. High dose opiate dependent -continue on high-dose methadone, morphine apparently provided by Oncology Portal vein thrombosis -continue Coumadin -follow INR. Hypokalemia -this appears to be caused by her low-dose Lasix in conjunction with poor oral intake/malnutrition -resolved with additional K given yesterday. Leukopenia -UA suggests a possible UTI but the UC is negative so far. -No UTI symptoms Thrombocytopenia -this is undoubtedly related to her extended chemotherapy treatments, bone marrow metastasis etc. Stable at 50 today. Status at Discharge Cognitive/behavioral status at discharge: at baseline, oriented Functional status at discharge: wheelchair bound Overall status at discharge: patient is back to baseline Time Spent with Patient Greater than 30 minutes Exam Vital Signs (past 8 hours): - 05/25/19 01:16 05/25/19 05:59 05/25/19 09:00 Temperature 98.2 F 97.9 F Pulse Rate 89 92 H Respiratory Rate 18 18 Blood Pressure 101/69 111/75 Pulse Oximetry 90 L 87 L 91 Oxygen Delivery Method Nasal Cannula Oxygen Flow Rate 3 Narrative Exam Narrative: She is sleeping when I 1st try to speak with her but then gradually wakes up and is more animated than yesterday, not unsurprisingly given the dexamethasone that was started last night. She is saturating in the high 80s on 3 L of nasal cannula oxygen. She appears comfortable and says she feels much better than she did yesterday before the oxygen was started. She remains extremely kyphotic. Heart is regular rate and rhythm without murmur. Lungs are diminished over both bases. It is challenging to ascertain the dimensions of her lungs with her severe kyphosis. There is no wheezing or crackling heard today. Extremities have no ankle edema. Objective Labs Result Diagrams: 05/25/19 06:24 05/25/19 06:24 Labs: Laboratory Results - last 24 hr 05/24/19 05/24/19 05/24/19 13:26 13:26 14:14 WBC 2.3 L RBC 3.54 L Hgb 12.5 Hct 36.6 MCV 103.3 H MCH 35.2 H MCHC 34.1 RDW 20.6 H Plt Count 54 L Neut % (Auto) 80.9 H Lymph % (Auto) 6.0 L [place] % (Auto) 9.8 Eos % (Auto) 2.2 Baso % (Auto) 1.1 Neut # (Auto) 1900 Lymph # (Auto) 100 L [place] # (Auto) 200 Eos # (Auto) 100 Baso # (Auto) 0 Platelet Estimate Decr RBC Morphology See below Polychromasia 1+ H Poikilocytosis 1+ H Anisocytosis 1+ H Macrocytosis 1+ H PT 17.8 H INR 1.5 H APTT 33 Sodium Potassium Chloride Carbon Dioxide BUN Creatinine Estimated GFR BUN/Creatinine Ratio Glucose Lactate Calcium Magnesium 1.6 Total Bilirubin AST ALT Alkaline Phosphatase Total Creatine Kinase 59 CK-MB (CK-2) TNP CK-MB (CK-2) Rel Index TNP Troponin I < 0.012 B-Natriuretic Peptide 277 H Total Protein Albumin Globulin Albumin/Globulin Ratio Procalcitonin Urine Color Urine Appearance Urine pH Ur Specific [place] Urine Protein Urine Glucose (UA) Urine Ketones Urine Occult Blood Urine Nitrate Urine Bilirubin Urine Urobilinogen Ur Leukocyte Esterase Urine RBC Urine WBC Ur Squamous Epith Cells Urine Bacteria Hyaline Casts Urine Mucus Ur Culture Indicated? 05/24/19 05/24/19 05/24/19 14:14 14:14 14:14 WBC RBC Hgb Hct MCV MCH MCHC RDW Plt Count Neut % (Auto) Lymph % (Auto) [place] % (Auto) Eos % (Auto) Baso % (Auto) Neut # (Auto) Lymph # (Auto) [place] # (Auto) Eos # (Auto) Baso # (Auto) Platelet Estimate RBC Morphology Polychromasia Poikilocytosis Anisocytosis Macrocytosis PT INR APTT Sodium 136 L Potassium 2.7 L* Chloride 93 L Carbon Dioxide 36 H BUN 13 Creatinine 0.60 Estimated GFR > 60.0 BUN/Creatinine Ratio 21.7 Glucose 100 Lactate 1.5 Calcium 8.5 Magnesium Total Bilirubin 1.0 AST 77 H ALT 26 Alkaline Phosphatase 142 H Total Creatine Kinase CK-MB (CK-2) CK-MB (CK-2) Rel Index Troponin I B-Natriuretic Peptide Total Protein 6.5 Albumin 3.2 L Globulin 3.3 Albumin/Globulin Ratio 1.0 Procalcitonin < 0.05 Urine Color Urine Appearance Urine pH Ur Specific [place] Urine Protein Urine Glucose (UA) Urine Ketones Urine Occult Blood Urine Nitrate Urine Bilirubin Urine Urobilinogen Ur Leukocyte Esterase Urine RBC Urine WBC Ur Squamous Epith Cells Urine Bacteria Hyaline Casts Urine Mucus Ur Culture Indicated? 05/24/19 05/24/19 05/25/19 15:00 18:21 06:24 WBC 2.2 L RBC 3.42 L Hgb 12.1 Hct 36.5 MCV 106.8 H D MCH 35.4 H MCHC 33.1 RDW 20.9 H Plt Count 50 L Neut % (Auto) 90.0 H Lymph % (Auto) 3.8 L [place] % (Auto) 5.2 Eos % (Auto) 0.6 L Baso % (Auto) 0.4 Neut # (Auto) 2000 Lymph # (Auto) 100 L [place] # (Auto) 100 Eos # (Auto) 0 Baso # (Auto) 0 Platelet Estimate . RBC Morphology See below Polychromasia 1+ H Poikilocytosis Anisocytosis 1+ H Macrocytosis 2+ H PT INR APTT Sodium Potassium 3.6 Chloride Carbon Dioxide BUN Creatinine Estimated GFR BUN/Creatinine Ratio Glucose Lactate Calcium Magnesium Total Bilirubin AST ALT Alkaline Phosphatase Total Creatine Kinase CK-MB (CK-2) CK-MB (CK-2) Rel Index Troponin I B-Natriuretic Peptide Total Protein Albumin Globulin Albumin/Globulin Ratio Procalcitonin Urine Color Yellow Urine Appearance Clear Urine pH 5.0 Ur Specific [place] 1.025 Urine Protein Negative Urine Glucose (UA) Negative Urine Ketones Trace H Urine Occult Blood Negative Urine Nitrate Negative Urine Bilirubin Negative Urine Urobilinogen 0.2 Ur Leukocyte Esterase 1+ H Urine RBC None seen Urine WBC 10-30/hpf H Ur Squamous Epith Cells 1-5 /hpf Urine Bacteria Moderate (10-30) H Hyaline Casts 10-30/lpf Urine Mucus 2+ H Ur Culture Indicated? Specimen cultured 05/25/19 05/25/19 06:24 06:24 WBC RBC Hgb Hct MCV MCH MCHC RDW Plt Count Neut % (Auto) Lymph % (Auto) [place] % (Auto) Eos % (Auto) Baso % (Auto) Neut # (Auto) Lymph # (Auto) [place] # (Auto) Eos # (Auto) Baso # (Auto) Platelet Estimate RBC Morphology Polychromasia Poikilocytosis Anisocytosis Macrocytosis PT INR APTT Sodium 139 Potassium 4.0 Chloride 97 L Carbon Dioxide 36 H BUN 13 Creatinine 0.60 Estimated GFR > 60.0 BUN/Creatinine Ratio 21.7 Glucose 130 H Lactate Calcium 8.8 Magnesium 1.7 Total Bilirubin AST ALT Alkaline Phosphatase Total Creatine Kinase CK-MB (CK-2) CK-MB (CK-2) Rel Index Troponin I B-Natriuretic Peptide Total Protein Albumin Globulin Albumin/Globulin Ratio Procalcitonin Urine Color Urine Appearance Urine pH Ur Specific [place] Urine Protein Urine Glucose (UA) Urine Ketones Urine Occult Blood Urine Nitrate Urine Bilirubin Urine Urobilinogen Ur Leukocyte Esterase Urine RBC Urine WBC Ur Squamous Epith Cells Urine Bacteria Hyaline Casts Urine Mucus Ur Culture Indicated? Discharge Plan Discharge Plan Patient Disposition: Home Discharge comment: Continue on 3L of O2, follow up with oncologist RU. Discharge Med Rec/Prescriptions Prescriptions: New dexamethasone [Decadron] 4 mg tablet 4 mg PO BID Qty: 60 RF: 0 Continued salsalate 500 mg Tablet 1,000 mg PO BID RF: 0 sennosides [senna] 8.6 mg Tablet 1 dose PO PRN PRN (Reason: Constipation) RF: 0 lidocaine 4 % Adhesive Patch,Medicated 1 patch TOPICAL DAILY PRN (Reason: pain) RF: 0 spironolactone 25 mg Tablet 25 mg PO DAILY RF: 0 hydromorphone [Dilaudid] 2 mg Tablet 6 mg PO Q3H PRN (Reason: pain) RF: 0 potassium chloride [Klor-Con M20] 20 mEq Tablet,Er Particles/Crystals 20 meq PO DAILY RF: 0 morphine 60 mg Tablet Extended Release 120 mg PO Q12H RF: 0 furosemide 20 mg Tablet 60 mg PO DAILY RF: 0 methadone 5 mg Tablet 15 mg PO BID RF: 0 ondansetron 4 mg Tablet,Disintegrating 4 mg PO PRN PRN (Reason: Nausea) RF: 0 enoxaparin 80 mg/0.8 mL Syringe 1 dose subcut DAILY RF: 0 cyclobenzaprine 5 mg Tablet 5 mg PO TID PRN (Reason: Muscle Spasm) RF: 0 Narcan 4 mg/actuation [place],Non-Aerosol 1 dose intranasal PRN PRN (Reason: Opioid Overdose) RF: 0 Discharge Data Attending Provider: Antonio Horton Admit Date/Time: 05/24/19 15:57 Quality VTE Deep Vein Thrombosis/Pulmonary Embolism Present on Admission: Yes
--- NOTE | 2019-05-25 12:32 | CM.DANOTE ---
Addendum entered by Maryellen Acevedo LPN 05/25/19 14:50: Have spoken now several times with Dr. Horton,RT Azael, RN Good and pt's spouse Gabriel. Pt continues to be mostly somnolent with obvious shortness of breath. Oxygen is being delivered to the [place] home and pt will now d/c there when she is stable enough to leave the hospital with vendor: Huma Rios does now confirm in a lengthy followup conversation that pt's most recent oncologist, Dr. Elizabeth, who saw pt years ago when she was first dx with cancer, has discussed Hospice care and encouraged her to consider her overall goals going forward. Pt is still considering option of palliative radiation and perhaps chemo. Gabriel says they do have experience with Hospice as his brother under their care. He says his feels like she is giving up if she elects this. Gabriel also notes that pt did well on the trip up and that Dr. Elizabeth encouraged them to take this time to enjoy a trip as no treatment or tests were planned for a month. He says he is shocked at her rapid decline. He confirms he is her only caregiver but their 20 year old son who does live with them at the [place] home is very helpful. P: check in again tomorrow and follow prn. Will plan to provide Gabriel with the [facility] brochure as info/local option if pt continues her rapid decline and decides to stay at their [facility]. Pt is not alert enough for discussion. She seems to primarily be using most of her energy to breath. Original Note: Discharge Planning/Care Management DCP: assessment: case received, EMR reviewed. Case discussed in Team Rounds with Dr. Horton and a d/c to home setting order was noted. Met now with pt and her Gabriel Godoy: cell [phone]. Pt is found sitting slumped in bedside chair, struggling to open her eyes,o2 in place. Introduced self and role. Pt is a 58 year old female who lives with her in [place]. They also have a place in [facility] and were here for a visit. Admitted yesterday late afternoon to care of hospitalist team. PCP: oncologist Dr. Elizabeth in [place]. Pt and Gabriel had made decision after this hospital stay to go directly back (by pvt car) to [place] so as to follow up RU with oncology. Dr. Horton has also encouraged consideration of palliative/hospice care approach discussion with pt's providers once she returns to [place]. RT has been working since yesterday afternoon to get pt set up with oxygen that she can continue once she gets home and as she travels. A tank for d/c is currently in the room and RT Azael will be up to talk with KVNG Funk and Gabriel re the details of how this will be handled during the trip. Acknowledged the plan that was in place for pt to leave today but then asked how this might work as it would appear at this time to be very difficult for pt to even go in a car across [facility]. Gabriel stated that pt seemed to be very heavily medicated, noting that he had never seen her so unable to communicate effectively or to focus. He said that she was the one who managed her medications at home and I think she just took them as she needed them. She would start the day with a little cup of pills and by the time she was ready to lay down I would sometimes find pills on the floor etc. If she was getting all her medications as prescribed here in the hospital it might have been too much. Alerted Dr. Horton and KVNG Funk to situation and he and his medical student are now in room assessing pt again and talking more with . Will be following. CM Discharge Assessment Start: 05/25/19 12:30 Freq: Status: Active Protocol: Document 05/25/19 12:31 ITV (Rec: 05/25/19 12:32 ITV [id number]) Discharge Planning Assessment Advance Directives? No History Provided By Patient Family Member Medical Record Prior Living Arrangements House Household Members significant other Type of transporation used prior to Relies on Others admit Independent with ADL's No Review Status In Process
--- NOTE | 2019-05-25 12:46 | PT.IPTN ---
Current Diagnoses Other pulmonary embolism without acute cor pulmonale (05/24/19) Physical Therapy Treatment Note M3 PT-IP Subjective Start: 05/25/19 12:44 Freq: NEEDED Status: Active Protocol: Document 05/25/19 12:45 AB (Rec: 05/25/19 12:46 AB [id number]) Subjective Physical Therapy Visit Type Notes During rounds meeting: Doctor informed therapy that pt does not need PT. pt is going home with spouse and will have hospice care. will d/c PT eval order.
--- NOTE | 2019-05-25 18:54 | PC.NURSE ---
Addendum entered by William Ramos R.N. 05/25/19 20:26: patient is A&O x4, pleasant and talkative w/ staff and is now able to make needs know. This is a great improvement from the 1700 hour. Patient was able to safely ambulate to BR w/ FWW without difficultly. Patient req. to go back to chair rather then bed and sit to watch tv and snack on unfinished dinner tray. Original Note: At shift change patient was sitting up to chair, was significantly sleepy likely due to narcotic medication given earlier in day. Patient however was responsive and talking and easily arousable. During bedside report patient was able to take PO Lasix for this nurse and day nurse, followed commands appropriately, and was having a verbal conversation with both day and this nurse. At 1730 this nurse entered room to do shift assessment on patient. Patient opened her eyes upon request of nurse but was not able to follow any verbal commands. B/P: 105/52, HR: 91 and regular, 02: 89-91% on 3LNC. Patients breathing was no different then previous, breaths were shallow and slightly labored, patient however was doing pursed lip breathing. PLERRA and 3mm in size. Patient's spouse was at the chair-side in room, was tearful of patients situation. Call placed to charge nurse and this nurse immediately consulted Dr. Horton whom was in office across the [place]. Per Dr. Horton this patient has cont. to go in and out of this obtunded state 3 times today. Discussed what possibilities of the cause and Dr. horton believes it to be r/t her narcotic medications. Patient had not had any pain meds since 910 today (see MAR for details). Discuss poss. needs to push Narcan and which Dr. Horton did not wish to do. No action was taken, Dr. Horton states She will pop back out of it. Upon arrival back to room patient was talking to staff members in room helping her, was able to get from chair to bed with little assistance and was able to start following commands and responding verbally to this nurse. Patient was placed back to bed, VSS, 91% on 3L NC. Call light w/ in reach, bed in low pos. alarm active.
[2019-05-25] MEDS: SODIUM CHLORIDE 0.9% 1,000 ML 150 ML IV (19:21)
[2019-05-25] MEDS: SENNOSIDES 8.6 MG TABLET PO (22:11)
[2019-05-25] MEDS: DEXAMETHASONE 4 MG/ML VIAL IV (23:44)
--- NOTE | 2019-05-26 00:49 | PC.NURSE ---
Addendum entered by Chela Izquierdo R.N. 05/26/19 05:50: IV site bleeding an IV canula nearly out; unable to rethread back into vein so d'cd. Discussed with Kelsie REGALADO. New orders received. Telemetry d'cd per order. Patient states she feels like she is suffocating with the oxygen mask on so switched over to NC and sat now at 93% at rest. Denies pain. Addendum entered by Chela Izquierdo R.N. 05/26/19 02:36: Getting up frequently to urinate so checked PVR but only showing 44ml. Original Note: Patient is alert and oriented. Breath sounds coarse with crackles in bilateral mid/lower lobes. SOB with exertion. Oxygen at 3L/min per mask with sat of 93% at rest but goes down to 85% when up to BSC and intermittently desats especially when she removes mask. Respirations do seem labored even at rest; is on continuous pulse oximetry for closer monitoring of respiratory status. HRR and telemetry reading was SR. Denies nausea. BT present and abdomen is soft although rounded. Denies dysuria, frequency or urgency. Able to turn self in bed and is assist to BSC with walker and SBA. Kyphotic. Does complain of 2/10 neck/back pain but declines offer of pain medication. Fall risk score is high and bed alarm is activated.
[2019-05-26] MEDS: SODIUM CHLORIDE 0.9% 1,000 ML 150 ML IV (02:07)
[2019-05-26 03:34] VITALS: BP 106/66; PULSE 108; RESP 20; TEMP 36.6; O2SAT 94
[2019-05-26 07:38] VITALS: O2SAT 93
[2019-05-26 08:00] VITALS: BP 95/60; PULSE 96; RESP 22; TEMP 36.7; O2SAT 92
[2019-05-26] MEDS: FUROSEMIDE 20 MG TABLET 60 MG PO (08:53)
[2019-05-26] MEDS: ENOXAPARIN 80 MG/0.8 ML SYRINGE SUBCUT (08:53)
[2019-05-26] MEDS: POTASSIUM CHLORIDE 20 MEQ TAB PO (08:54)
[2019-05-26] MEDS: SPIRONOLACTONE 25 MG TABLET PO (08:54)
[2019-05-26] MEDS: SALSALATE 500 MG TABLET 1000 MG PO (08:54)
[2019-05-26 10:38] VITALS: O2SAT 90
--- NOTE | 2019-05-26 10:40 | PC.NURSE ---
Pt is A&Ox3, she is a bit forgetful at times. Pt has kyphosis and is bent over when standing,sitting, and ambulating. Denies pain when asked. Up to void on bsc with 1PA. She is getting po lasix and voids often. Took all medications whole with water this morning. She did spit up a small amount of water but denied nausea after. She would like to be discharged today, waiting for and to come see her. Pt is on 3l of 02 and sats are between 90-93%. BS a bit course and decreased. Pt is sitting up in chair with chair alarm attached.
--- NOTE | 2019-05-26 13:08 | P.DS_ITS ---
History of Present Illness Chief complaint: shortness of breath Narrative: This is a 62-year-old female, on vacation to her 2nd home here in [facility] who has advanced metastatic breast cancer. She just drove up from her home in [place], hoping to spend a month relaxing here but became short of breath and severely dyspneic with any exertion within the last 2 days. About 10 days ago her oncologist had diagnosed a portal vein thrombosis on CT scan and started her on warfarin. Her INR is 1.5. The chest x-ray today shows bilateral pulmonary markings, likely scarring versus mets along with a pleural effusion on the right. Due to her severe kyphosis it is difficult to localize clearly for a possible thoracentesis in a safe manner. She was 81% on room air when she arrived and is now sat-ting in the low 90s on 1-2 L of nasal cannula. She says she feels ?so much better.? She had indicated that she was thinking of doing palliative radiation to her back metastasis. She also indicates that the oncologist suggested there might be 2 more oral/chemo treatments to try. She has not had any pulmonary problems before this point. She apparently did not have a pleural effusion on her CT scan from 10 days ago. Her cancer was garo gnosed in 2001, treated with tamoxifen for 5 years and a bilateral mastectomy, then spreading to her liver, then treated with chemotherapy, unknown name, until recently when it appeared not to show any response on her last CT scan. Dr. Elizabeth in [facility] is her current oncologist. She does not appear to have been referred to hospice yet. She will need home oxygen, specifically a mobile compressor to use on her planned drive back to [place] when she leaves here. That was not able to be arranged in the emergency department. She has specific insurance/home oxygen company requirements that will take some time to finalize, hopefully by tomorrow. She has not been on steroids for her cancer before. There has been no fever/coughing/chest pain. Her potassium level is low at 2.7. She is on Lasix 20 mg a day. Her white blood count is low at 2.3 and her platelets are low at 54. Discharge Providers Date of admission: 05/24/19 15:57 Discharge Date: 05/26/19 Consults: 05/24/19 13:53 Consult to Respiratory Therapy Evaluate & Treat Comment: Physician Instructions: Evaluate and treat 05/24/19 17:10 Consult to Dietitian, Adult Routine Comment: Reason For Exam: Stated poor appetite. Eats frequent small meals 05/24/19 17:55 Consult to Physical Therapy Evaluate & Treat Comment: Physician Instructions: Evaluate and Treat Discharge provider: Antonio Horton MD Summary Discharge Diagnosis: Acute hypoxic respiratory failure Central Lobular Emphysema Moderate right pleural effusion Pulmonary scarring versus pulmonary breast cancer metastasis Metastatic breast cancer with severe kyphosis and chronic bone pain High dose opiate dependent Portal vein thrombosis Hypokalemia Leukopenia Thrombocytopenia Hospital Course: Acute hypoxic respiratory failure with Chronic Emphysema -Her dyspnea has responded well to oxygen. At rest she is comfortable on 3 liters in the high 80's to low 90's. -most likely cause is the pleural effusion/prexisting emphysema plus pulmonary metastasis. Home Oxygen/Portable Oxygen statement Mrs. Dietrich was hypoxic on room air with a saturation of 81% on arrival. She is bed-bound due to cancer with metastasis to the spine and severe degeneration of the spine. On 2 L of oxygen she regained a saturation of 94% and no longer exhibits air hunger. I am ordering home oxygen with an additional portable concentrator to facilitate travel back to the patient's home [facility], at which time she will continue to need oxygen at home. 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 -We considered thoracentesis. At this point with the altered anatomy of her severe kyphosis the decision is made to instead treat with oxygen and dexamethasone, in order to lower the risk of complications before she can return home to [place]. Pulmonary scarring versus pulmonary breast cancer metastasis -she describes mildly disturbing hallucinations today, possibly related to dexamethasone, so the dose will be decreased to 2 mg twice a day. Metastatic breast cancer with severe kyphosis and chronic bone pain -her goal is to return home immediately by driving to [facility], to resume her oncology treatments with further guidance from her oncologist. -I mentioned a need for hospice planning, at the very least an informational visit when she gets back to [place] would be appropriate. -she has had a long road with this cancer but it appears that she is coming in to the last few weeks of her prognostic window. -I spoke with her alone and also with her there and also spoke with her today about the poor prognosis. I was unable to convince her to take home health or hospice referrals as they both have a somewhat unrealistic belief that she will stabilize in a few days and be able to drive down to [place], a [address]... -she is much more likely to soon while here peacefully in her sleep or to need hospice referral and not to be able to return to [place] any time soon. 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 High dose opiate dependent -the discharge that was planned for yesterday was delayed because of the affects of her high-dose morphine Contin and methadone. Today without getting any medications since yesterday morning she is pain-free and much more alert. I have emphasized to her and to her that her dose of pain medicine should probably be less than half of what she is currently taking, probably needing less because of weight loss, steroid effect, increased debility. Portal vein thrombosis -continue Coumadin -follow INR at home in [place] Hypokalemia -this appears to be caused by her low-dose Lasix in conjunction with poor oral intake/malnutrition -resolved with additional K given on admission. Leukopenia -UA suggests a possible UTI but the UC is negative so far. -No UTI symptoms Thrombocytopenia -this is undoubtedly related to her extended chemotherapy treatments, bone marrow metastasis etc. Stable at 50 today. Exam Vital Signs (past 8 hours): - 05/26/19 07:38 05/26/19 08:00 05/26/19 10:38 Temperature 98.0 F Pulse Rate 96 H Respiratory Rate 22 Blood Pressure 95/60 Pulse Oximetry 93 92 90 L Fraction of Inspired Oxygen 32 Oxygen Delivery Method Room Air Oxygen Flow Rate 3 Narrative Exam Narrative: She is alert, oriented x3 and in moderate distress most of the time. At other times she fades out, closing her eyes, looking weak and briefly becoming unresponsive but when challenged she opens her eyes and responds. She is reporting hallucinations typical for steroids and is also somewhat delusional. Heart is regular rate and rhythm without murmur Lungs clear to auscultation and diminished in the inferior aspect, with severe kyphosis. Extremities have no ankle edema. Objective Labs Result Diagrams: 05/25/19 06:24 05/25/19 06:24 Discharge Plan Discharge Plan Patient Disposition: Home Discharge comment: Continue 3L O2 by nasal cannula, titrate to maintain saturation 88-92%. We advise hospice referral RU, home health referral if not going on hospice, unlikely to survive return to [place] either by air or ground. Cut your dose of methadone and morphine by at least half. Follow up with your doctor in [place] RU. Return to hospital if not improving or if you decide to go on hospice here call: and ask for the intake nurse. Discharge Med Rec/Prescriptions Prescriptions: New dexamethasone 2 mg tablet 2 mg PO BID Qty: 60 RF: 0 Continued salsalate 500 mg Tablet 1,000 mg PO BID RF: 0 sennosides [senna] 8.6 mg Tablet 1 dose PO PRN PRN (Reason: Constipation) RF: 0 lidocaine 4 % Adhesive Patch,Medicated 1 patch TOPICAL DAILY PRN (Reason: pain) RF: 0 spironolactone 25 mg Tablet 25 mg PO DAILY RF: 0 hydromorphone [Dilaudid] 2 mg Tablet 6 mg PO Q3H PRN (Reason: pain) RF: 0 potassium chloride [Klor-Con M20] 20 mEq Tablet,Er Particles/Crystals 20 meq PO DAILY RF: 0 furosemide 20 mg Tablet 60 mg PO DAILY RF: 0 ondansetron 4 mg Tablet,Disintegrating 4 mg PO PRN PRN (Reason: Nausea) RF: 0 enoxaparin 80 mg/0.8 mL Syringe 1 dose subcut DAILY RF: 0 cyclobenzaprine 5 mg Tablet 5 mg PO TID PRN (Reason: Muscle Spasm) RF: 0 Narcan 4 mg/actuation [place],Non-Aerosol 1 dose intranasal PRN PRN (Reason: Opioid Overdose) RF: 0 Changed morphine 60 mg Tablet Extended Release 60 mg PO Q12H Qty: 0 RF: 0 methadone 5 mg Tablet 5 mg PO BID Qty: 0 RF: 0 Provider Discharge Instructions Oxygen: 3L O2 by nasal cannula Discharge Data Attending Provider: Antonio Horton Admit Date/Time: 05/24/19 15:57 Quality VTE Deep Vein Thrombosis/Pulmonary Embolism Present on Admission: Yes
--- NOTE | 2019-05-26 13:27 | CM.DANOTE ---
DCP: continued: case discussed again in Team Rounds. Pt is noted to be much more alert today although breathing continues to be an obvious struggle. Dr. Horton just met with pt and her Gabriel and will d/c her to the home setting. Met in followup now with pt and Gabriel and provided them with the [facility] brochure with contact numbers. Gabriel stated he was very grateful for this resource. He says their goal for now is to go to the [facility] to see if pt is able to show stability that would enable a trip back to [place]. He says he will help his pursue Hospice option there. He admits that she may never be strong enough for the trip. If pt continues to struggle like she is now he will reach out to [facility] and they will likely just stay here. He says perhaps when we get home she will be able to go in her w/c to the [facility] and feel the sun and pt smiles and agrees. P: home to [facility] today and as per above.
== END 2019-05-26 14:30 | disposition home or self-care (01) | DRG 175 ==
LOC: ED 15:46 → AC 16:22
PROVIDERS: Nurse Practitioner Gerontology; Admitting Provider Family Medicine; Emergency Provider Emergency Medicine; Visit Provider Family Medicine
DX: I26.99 Other pulmonary embolism without acute cor pulmonale (principal); J96.01 Acute respiratory failure with hypoxia; C79.51 Secondary malignant neoplasm of bone; J91.0 Malignant pleural effusion; F11.20 Opioid dependence, uncomplicated; J43.2 Centrilobular emphysema; E87.6 Hypokalemia; D69.59 Other secondary thrombocytopenia; Z85.3 Personal history of malignant neoplasm of breast; M40.10 Other secondary kyphosis, site unspecified; Z74.01 Bed confinement status; I49.3 Ventricular premature depolarization
CPT/HCPCS: 36415; 36591; 71045; 71275; 80048; 80053; 81001; 82550; 83605; 83735; 83880; 84132; 84145; 84484; 85025; 85610; 85730; 87040; 87086; 93005; 94618; 94760; 94762; 96360; 96361; 99284; 99285; J1100; J1650; Q9967